=== PATIENT | female | born 1975 | race Native Hawaiian/Other Pacific Islander ===

== ENCOUNTER 2016-09-26 11:20 | Inpatient (IN) | payer SELFPAY ==
[~2016-09-26 11:20] MED LIST: ceFAZolin SODIUM 1 GM VIAL IVPB ONE
[2016-09-26 11:26] VITALS: BMI 24.3
[2016-09-26] MEDS ORDERED: ONDANSETRON 4 MG/2 ML VIAL IVPUSH ONE (12:04)
[2016-09-26] MEDS ORDERED: HYDROmorphone HCL CARPU-JECT 1 MG/1 ML DISP.SYRIN IVPUSH ONE (12:04)
[2016-09-26] MEDS ORDERED: PANTOPRAZOLE SODIUM 40 MG in SODIUM CHLORIDE 100 ML IVPB ONE (12:04)
[2016-09-26] MEDS ORDERED: SODIUM CHLORIDE 1,000 ML IV STA ×3 (12:05→13:26)
[2016-09-26] MEDS ORDERED: HYDROmorphone HCL CARPU-JECT 1 MG/1 ML DISP.SYRIN ONE ×2 (12:12→16:26)
[2016-09-26] MEDS ORDERED: PANTOPRAZOLE SODIUM 100 ML IVPB ONE (12:13)
[2016-09-26] MEDS ORDERED: ONDANSETRON 4 MG/2 ML VIAL ONE (12:13)
[2016-09-26 12:18] LABS: BASOPHIL 0.1 % (0-2.0); MEAN CELL VOLUME 74.2 fl (80-96); MEAN PLT VOLUME 8.1 fl (7.5-11.1); NEUTROPHILS 83.9 % (42.8-82.8); PLATELET COUNT 340 K/MM3 (134-434); WHITE BLOOD COUNT 8.7 K/mm3 (4.0-10.0)
--- NOTE | 2016-09-26 12:22 | PDOC ---
History of Present Illness - General Chief Complaint: Pain Stated Complaint: ABD PAIN Time Seen by Provider: 09/26/16 11:50 History Source: Patient Exam Limitations: No Limitations - History of Present Illness Travel History: No Initial Comments: 09/26/16 12:17 41-year-old female presents to the emergency room with complaints of right periumbilical pain that radiated to her right upper quadrant now to the right lower quadrant since yesterday after eating dinner. Patient states history of cholecystectomy, and mesenteric diverticulitis. Patient states long-standing history of diarrhea and intermittent abdominal pain which she is followed by a physician in [place]. Patient states has been visiting here for the past few days and denies fever, chills, chest pain or shortness of breath. Patient does also complain of diarrhea with vomiting since onset. Patient states menses is regular and has an IUD in place. Timing/Duration: reports: getting worse Quality: reports: moderate, cramping Abdominal Pain Onset Location: reports: RUQ, RLQ, periumbilical (rt) Pain Radiation: reports: no radiation Activities at Onset: reports: none Aggravating Factors: improves with: Eating (began after dinner) Alleviating Factors: improves with: None Past History - Past Medical History Allergies/Adverse Reactions: Allergies Allergy/AdvReac Type Severity Reaction Status Date / Time No Known Allergies Allergy Verified 09/26/16 11:26 Home Medications: Ambulatory Orders NK [No Known Home Medication] 09/26/16 GI Disorders: Yes (Mesenteric Diverticulitis) - Surgical History Abdominal Surgery: Yes Cholecystectomy: Yes - Reproductive History LMP Normal: Yes Is Patient Now?: No - Psycho/Social/Smoking Cessation Hx Suicidal Ideation: No Smoking History: Never smoked Information on smoking cessation initiated: No Hx Alcohol Use: No Drug/Substance Use Hx: No Substance Use Type: None Patient Lives Alone: No Abd/GI Specific PMHX - Complaint Specific PMHX Diverticulitis: Yes Review of Systems - Review of Systems Able to Perform ROS?: Yes Constitutional: No: Symptoms Reported HEENTM: No: Symptoms Reported Respiratory: No: Symptoms reported Cardiac (ROS): No: Symptoms Reported ABD/GI: Yes: Diarrhea, Nausea, Vomiting, Abdominal cramping : No: Symptoms Reported Musculoskeletal: No: Symptoms Reported Integumentary: No: Symptoms Reported Neurological: No: Symptoms reported *Physical Exam - Vital Signs Last Vital Signs Temp Pulse Resp BP Pulse Ox 97.7 F 80 18 113/76 97 09/26/16 11:24 09/26/16 11:24 09/26/16 11:24 09/26/16 11:24 09/26/16 11:24 - Physical Exam General Appearance: Yes: Nourished, Appropriately Dressed. No: Apparent Distress HEENT: positive: Pharynx Normal (dry) Neck: positive: Normal Thyroid, Supple Respiratory/Chest: positive: Lungs Clear, Normal Breath Sounds. negative: Respiratory Distress, Accessory Muscle Use Cardiovascular: positive: Regular Rhythm, Regular Rate. negative: Murmur Gastrointestinal/Abdominal: positive: Soft, Tenderness (right upper quadrant , right periumbilical right lower quadrant positive McBurney's negative Sánchez's. ) Musculoskeletal: negative: CVA Tenderness Extremity: positive: Normal Capillary Refill. negative: Pedal Edema Integumentary: positive: Normal Color, Warm, Moist Neurologic: positive: Normal Mood/Affect, Motor Strength 5/5 (ambulatory) ED Treatment Course - LABORATORY CBC & Chemistry Diagram: 09/26/16 12:05 09/26/16 12:05 - RADIOLOGY Radiology Studies Ordered: Category Date Time Status ABDOMEN & PELVIS CT WITH CONTR [CT] Stat CT Scan 09/26/16 12:04 Ordered Medical Decision Making - Medical Decision Making 09/26/16 12:22 Patient with right abdominal pain concerning for appendicitis versus choledocholithiasis versus pancreatitis. Patient ordered for labs, antiemetics, analgesics, IV fluids, urinalysis urine and ordered for CT with contrast 09/26/16 13:29 Laboratory Tests 09/26/16 09/26/16 09/26/16 12:05 12:05 12:05 Sodium 139 Potassium 4.4 Chloride 105 Carbon Dioxide 28 Anion Gap 6 L BUN 15 Creatinine 0.7 Creat Clearance w eGFR > 60 Lactic Acid 2.3 H* Urine Protein 1+ H Urine Ketones 1+ H Urine Blood 1+ H Ur Leukocyte Esterase Trace H Urine RBC 12 Urine WBC 19 Patient ordered for 2 additional liters of IV fluid along with a second lactic acid and ceftriaxone for noted UTI. 09/26/16 16:24 Laboratory Tests 09/26/16 12:05 Ur Specific [place] >= 1.[address] shows acute appendicitis. Pt states pain was resolved with dilaudid but now is returning. Call placed to Dr. Serrano, surgeon. 09/26/16 16:[address] Serrano surgeon and states keep nothing by mouth give IV fluids and Flagyl. *DC/Admit/Observation/Transfer Diagnosis at time of Disposition: Appendicitis Qualifiers: Appendicitis type: acute appendicitis - Discharge Dispostion Admit: Yes
[2016-09-26 12:35] LABS: MAGNESIUM 2.1 mg/dL (1.8-2.4); URINE APPEARANCE CLEAR; URINE BILIRUBIN NEGATIVE (NEGATIVE); URINE COLOR YELLOW; URINE GLUCOSE (UA) NEGATIVE (NEGATIVE); URINE KETONE 1+ (NEGATIVE); URINE NITRITE NEGATIVE (NEGATIVE); URINE UROBILINOGEN NEGATIVE E.U./dl (0.2-1.0)
[2016-09-26 12:40] LABS: ALBUMIN 4.3 g/dl (3.4-5.0); ALK PHOS 104 U/L (45-117); ANION GAP 6 (8-16); BILIRUBIN,TOTAL 0.4 mg/dL (0.2-1.0); CALCIUM 8.8 mg/dL (8.5-10.1); CO2 28 mmol/L (21-32); CREATININE 0.7 mg/dL (0.55-1.02); GLUCOSE,RANDOM 176 mg/dL (74-106); SGOT/AST 26 U/L (15-37); SGPT/ALT 38 U/L (12-78); TOT PROT 8.2 g/dl (6.4-8.2)
[2016-09-26 12:56] LABS: URINE BLOOD 1+ (NEGATIVE); URINE LEUK ESTERASE TRACE (NEGATIVE); URINE PROTEIN 1+ (NEGATIVE)
[2016-09-26 13:01] LABS: URINE MUCUS MANY; URINE RBC 12 /hpf (0-3); URINE WBC 19 /hpf (3-5)
[2016-09-26] MEDS ORDERED: CEFTRIAXONE 1 GM in DEXTROSE 5%-WATER - 50 ML IVPB ONE (13:29)
[2016-09-26] MEDS ORDERED: CEFTRIAXONE 50 ML ONE (13:44)
[2016-09-26] MEDS ORDERED: HYDROmorphone HCL CARPU-JECT 2 MG/1 ML DISP.SYRIN IVPUSH ONE (16:23)
--- NOTE | 2016-09-26 16:24 | PDOC ---
*Physical Exam - Vital Signs Last Vital Signs Temp Pulse Resp BP Pulse Ox 97.7 F 80 18 113/76 97 09/26/16 11:24 09/26/16 11:24 09/26/16 11:24 09/26/16 11:24 09/26/16 11:24 ED Treatment Course - LABORATORY CBC & Chemistry Diagram: 09/27/16 07:30 09/26/16 12:05 - ADDITIONAL ORDERS Additional order review: Laboratory Results 09/26/16 09/26/16 09/26/16 12:05 12:05 12:05 Sodium Potassium Chloride Carbon Dioxide Anion Gap BUN Creatinine Creat Clearance w eGFR Random Glucose Lactic Acid 2.3 H* Calcium Magnesium 2.1 Total Bilirubin AST ALT Alkaline Phosphatase Total Protein Albumin Lipase 76 Urine Color Yellow Urine Appearance Clear Urine pH 5.0 Urine Protein 1+ H Urine Glucose (UA) Negative Urine Ketones 1+ H Urine Blood 1+ H Urine Nitrite Negative Urine Bilirubin Negative Urine Urobilinogen Negative Ur Leukocyte Esterase Trace H Urine RBC 12 Urine WBC 19 Ur Epithelial Cells Few Urine Mucus Many Urine HCG, Qual Negative 09/26/16 12:05 Sodium 139 Potassium 4.4 Chloride 105 Carbon Dioxide 28 Anion Gap 6 L BUN 15 Creatinine 0.7 Creat Clearance w eGFR > 60 Random Glucose 176 H Lactic Acid Calcium 8.8 Magnesium Total Bilirubin 0.4 AST 26 ALT 38 Alkaline Phosphatase 104 Total Protein 8.2 Albumin 4.3 Lipase Urine Color Urine Appearance Urine pH Urine Protein Urine Glucose (UA) Urine Ketones Urine Blood Urine Nitrite Urine Bilirubin Urine Urobilinogen Ur Leukocyte Esterase Urine RBC Urine WBC Ur Epithelial Cells Urine Mucus Urine HCG, Qual 09/26/16 12:05 RBC 4.27 MCV 74.2 L MCHC 31.0 L RDW 19.0 H MPV 8.1 Neutrophils % 83.9 H Lymphocytes % 9.2 Monocytes % 6.8 Eosinophils % 0.0 Basophils % 0.1 - Medications Given in the ED: ED Medications Discontinued Medications Generic Name Dose Route Start Last Admin Trade Name Freq PRN Reason Stop Dose Admin Hydromorphone HCl 0.5 mg 09/26/16 12:04 09/26/16 12:24 Dilaudid Injection - IVPUSH 09/26/16 12:05 0.5 mg ONCE ONE Administration Pantoprazole Sodium 40 mg/ 100 mls @ 200 mls/hr 09/26/16 12:04 09/26/16 12:23 Sodium Chloride IVPB 09/26/16 12:33 200 mls/hr ONCE ONE Administration Sodium Chloride 1,000 mls @ 1,000 mls/hr 09/26/16 12:05 09/26/16 12:23 Normal Saline - IV 09/26/16 13:04 1,000 mls/hr ASDIR STA Administration Sodium Chloride 1,000 mls @ 1,000 mls/hr 09/26/16 13:26 09/26/16 13:38 Normal Saline - IV 09/26/16 14:25 1,000 mls/hr ASDIR STA Administration Sodium Chloride 1,000 mls @ 1,000 mls/hr 09/26/16 13:26 09/26/16 14:53 Normal Saline - IV 09/26/16 14:25 1,000 mls/hr ASDIR STA Administration Ceftriaxone Sodium 1 gm/ 50 mls @ 100 mls/hr 09/26/16 13:29 09/26/16 13:47 Dextrose IVPB 09/26/16 13:58 100 mls/hr ONCE ONE Administration Ondansetron HCl 4 mg 09/26/16 12:04 09/26/16 12:23 Zofran Injection IVPUSH 09/26/16 12:05 4 mg ONCE ONE Administration Medical Decision Making - Medical Decision Making 09/26/16 16:20 Pt seen by Midlevel Provider under my direct supervision 41 yo F presenting to the ER with a complaint of right sided abdominal pain Ancillary studies reviewed Laboratory Tests 09/26/16 09/26/16 12:05 12:05 BUN 15 Creatinine 0.7 AST 26 ALT 38 Lipase 76 I agree with plan as outlined by Midlevel Provider Pt pending CT of the abdomen and pelvis *DC/Admit/Observation/Transfer Diagnosis at time of Disposition: Appendicitis
[2016-09-26] MEDS ORDERED: METRONIDAZOLE 500 MG PREMIXED 100 ML IVPB ONE ×2 (16:30→16:38)
[2016-09-26] MEDS ORDERED: SODIUM CHLORIDE 1,000 ML IV SCH (16:45)
[2016-09-26] MEDS ORDERED: LIDOCAINE HCL 1%, 10 MG/ML (20ML VIAL) ONE (17:13)
[2016-09-26] MEDS ORDERED: BUPIVACAINE HCL/PF 0.5% (5MG/ML) 10 ML VIAL ONE ×2 (17:13→18:03)
--- NOTE | 2016-09-26 17:41 | HP ---
Admitting History and Physical - Admission Chief Complaint: RLQ abdominal pain History of Present Illness: 41-year-old female presents to the emergency room with complaints of right periumbilical pain that radiated to her right upper quadrant now to the right lower quadrant since yesterday after eating dinner. Patient states history of cholecystectomy, and mesenteric diverticulitis. Patient states long-standing history of diarrhea and intermittent abdominal pain which she is followed by a physician in [place]. Patient states has been visiting here for the past few days and denies fever, chills, chest pain or shortness of breath. Patient does also complain of diarrhea with vomiting since onset. Patient states menses is regular and has an IUD in place. CT scan shows RLQ inflammatory process consistent with acute appendicitis. Limitations to Obtaining History: No Limitations - Past Medical History Gastrointestinal: Yes: Diverticulitis, Other (chronic diarrhea) ...: No - Past Surgical History Past Surgical History: Yes: Cholecystectomy (laparoscopic) - Smoking History Smoking history: Never smoked - Alcohol/Substance Use Hx Alcohol Use: No - Social History History of Recent Travel: Yes (on vacation form [facility]) Home Medications - Allergies Allergies/Adverse Reactions: Allergies Allergy/AdvReac Type Severity Reaction Status Date / Time No Known Allergies Allergy Verified 09/26/16 11:26 - Home Medications Home Medications: Ambulatory Orders NK [No Known Home Medication] 09/26/16 Physical Examination Vital Signs: Vital Signs Temperature 97.7 F 09/26/16 11:24 Pulse Rate 115 H 09/26/16 17:09 Respiratory Rate 18 09/26/16 11:24 Blood Pressure 122/65 09/26/16 17:09 O2 Sat by Pulse Oximetry (%) 97 09/26/16 11:24 Constitutional: Yes: Well Nourished, Anxious HENT: Yes: Normocephalic Neck: Yes: Supple Cardiovascular: Yes: Tachycardia Respiratory: Yes: CTA Bilaterally Gastrointestinal: Yes: Soft, Tenderness, Rebound (at right lower quadrant) ...Rectal Exam: Yes: Deferred Musculoskeletal: Yes: WNL Extremities: Yes: WNL Edema: No Neurological: Yes: Alert, Oriented Labs: Laboratory Last Values WBC 8.7 K/mm3 (4.0-10.0) 09/26/16 12:05 RBC 4.27 M/mm3 (3.60-5.2) 09/26/16 12:05 Hgb 9.8 GM/dL (10.7-15.3) L 09/26/16 12:05 Hct 31.7 % (32.4-45.2) L 09/26/16 12:05 MCV 74.2 fl (80-96) L 09/26/16 12:05 MCHC 31.0 g/dl (32.0-36.0) L 09/26/16 12:05 RDW 19.0 % (11.6-15.6) H 09/26/16 12:05 Plt Count 340 K/MM3 (134-434) 09/26/16 12:05 MPV 8.1 fl (7.5-11.1) 09/26/16 12:05 Neutrophils % 83.9 % (42.8-82.8) H 09/26/16 12:05 Lymphocytes % 9.2 % (8-40) 09/26/16 12:05 Monocytes % 6.8 % (3.8-10.2) 09/26/16 12:05 Eosinophils % 0.0 % (0-4.5) 09/26/16 12:05 Basophils % 0.1 % (0-2.0) 09/26/16 12:05 Sodium 139 mmol/L (136-145) 09/26/16 12:05 Potassium 4.4 mmol/L (3.5-5.1) 09/26/16 12:05 Chloride 105 mmol/L (98-107) 09/26/16 12:05 Carbon Dioxide 28 mmol/L (21-32) 09/26/16 12:05 Anion Gap 6 (8-16) L 09/26/16 12:05 BUN 15 mg/dL (7-18) 09/26/16 12:05 Creatinine 0.7 mg/dL (0.55-1.02) 09/26/16 12:05 Creat Clearance w eGFR > 60 (>60) 09/26/16 12:05 Random Glucose 176 mg/dL (74-106) H 09/26/16 12:05 Lactic Acid 3.7 mmol/L (0.4-2.0) H* 09/26/16 16:10 Calcium 8.8 mg/dL (8.5-10.1) 09/26/16 12:05 Magnesium 2.1 mg/dL (1.8-2.4) 09/26/16 12:05 Total Bilirubin 0.4 mg/dL (0.2-1.0) 09/26/16 12:05 AST 26 U/L (15-37) 09/26/16 12:05 ALT 38 U/L (12-78) 09/26/16 12:05 Alkaline Phosphatase 104 U/L (45-117) 09/26/16 12:05 Total Protein 8.2 g/dl (6.4-8.2) 09/26/16 12:05 Albumin 4.3 g/dl (3.4-5.0) 09/26/16 12:05 Lipase 76 U/L (73-393) 09/26/16 12:05 Urine Color Yellow 09/26/16 12:05 Urine Appearance Clear 09/26/16 12:05 Urine pH 5.0 (5.0-8.0) 09/26/16 12:05 Ur Specific [place] >= 1.030 (1.005-1.025) H 09/26/16 12:05 Urine Protein 1+ (NEGATIVE) H 09/26/16 12:05 Urine Glucose (UA) Negative (NEGATIVE) 09/26/16 12:05 Urine Ketones 1+ (NEGATIVE) H 09/26/16 12:05 Urine Blood 1+ (NEGATIVE) H 09/26/16 12:05 Urine Nitrite Negative (NEGATIVE) 09/26/16 12:05 Urine Bilirubin Negative (NEGATIVE) 09/26/16 12:05 Urine Urobilinogen Negative E.U./dl (0.2-1.0) 09/26/16 12:05 Ur Leukocyte Esterase Trace (NEGATIVE) H 09/26/16 12:05 Urine RBC 12 /hpf (0-3) 09/26/16 12:05 Urine WBC 19 /hpf (3-5) 09/26/16 12:05 Ur Epithelial Cells Few /hpf (FEW) 09/26/16 12:05 Urine Mucus Many 09/26/16 12:05 Urine HCG, Qual Negative 09/26/16 12:05 Imaging - Results Cat Scan: Report Reviewed, Image Reviewed Problem List - Problems (1) Appendicitis Assessment/Plan: NPO IVF IV ANTIBIOTICS LAPAROSCOPIC APPENDECTOMY - risks of bowel injury, abscess, hematoma, stump leak , general anesthesia as well as benefits of rupture prevention, sepsis, and alternative of non-surgical management with IV antibiotics discussed with patient. Consent for proposed procedure signed. Code(s): K37 - UNSPECIFIED APPENDICITIS Qualifiers: Appendicitis type: acute appendicitis
[2016-09-26] MEDS ORDERED: PROPOFOL 20 ML ONE (17:50)
[2016-09-26] MEDS ORDERED: ROCURONIUM BROMIDE 50 MG/5 ML VIAL ONE (17:51)
[2016-09-26] MEDS ORDERED: DEXAMETHASONE SOD PHOSPHATE 4 MG/1 ML VIAL ONE (17:54)
[2016-09-26] MEDS ORDERED: PHENYLEPHRINE HCL 10 MG/1 ML SINGLE DOSE VIAL ONE (18:02)
[2016-09-26] MEDS ORDERED: BUPIVACAINE HCL/PF (5 MG/ML) 30 ML VIAL IJ ONE ×2 (18:11)
[2016-09-26] MEDS ORDERED: HYDROmorphone HCL CARPU-JECT 1 MG/1 ML DISP.SYRIN IVPUSH PRN ×2 (19:36→20:16)
[2016-09-26] MEDS ORDERED: ACETAMINOPHEN INJECTION 100 ML IVPB ONE (20:00)
[2016-09-26] MEDS ORDERED: ACETAMINOPHEN 1000 MG/100 ML VIAL (NON FORMULARY) IVPB PRN (20:13)
[2016-09-26] MEDS ORDERED: CEFOXITIN SODIUM 2 GM in DEXTROSE 5%-WATER - 100 ML IVPB ONE (20:15)
--- NOTE | 2016-09-26 20:18 | OP ---
Operative Note - Note: Operative Date: 09/26/16 Pre-Operative Diagnosis: [place] appendicitis Operation: Laparoscopic appendectomy, abdominal washout Findings: Ruptured appendicitis with generalized peritonitis Post-Operative Diagnosis: Other (Ruptured appendicitis with generalized peritonitis) Surgeon: Eren Serrano Anesthesiologist/DOUBLE END TENON OPERATOR: Mauro Kraft Anesthesia: General Estimated Blood Loss (mls): 10 Operative Report Dictated: Yes
[2016-09-26] MEDS ORDERED: HYDROmorphone HCL CARPU-JECT 2 MG/1 ML DISP.SYRIN ONE (20:22)
[2016-09-26] MEDS: LACTATED RINGERS SOLUTION 1,000 ML IV SCH (20:30)
[2016-09-26] MEDS ORDERED: cefOXitin SODIUM 2 GM VIAL (RESTRICTED TO ID) IVPB ONE (20:30)
[2016-09-26] MEDS ORDERED: cefOXitin SODIUM 2 GM VIAL (RESTRICTED TO ID) IVPB SCH (21:00)
--- NOTE | 2016-09-26 21:14 | OP ---
DATE OF OPERATION: 09/26/2016 PROCEDURE: Laparoscopic appendectomy with abdominal washout. PREOPERATIVE DIAGNOSIS: Acute appendicitis. POSTOPERATIVE DIAGNOSIS: Ruptured appendicitis with generalized peritonitis. SURGEON: Eren Serrano MD ANESTHESIA: General endotracheal. FINDINGS AND PROCEDURE: This is a 41-year-old female who presents with 1-day history of periumbilical abdominal pain, later localized in the right lower quadrant, associated with multiple episodes of diarrhea and vomiting. On physical exam, the patient was complaining of right-sided right upper quadrant, right lower quadrant, and midabdominal pain and tenderness. Preoperative CT scan in the emergency department showed inflammatory process in the right lower quadrant, consistent with appendicitis with some surrounding periappendiceal fluid and perihepatic fluid. So patient was advised emergent appendectomy, and consent was obtained after discussing the risks, benefits, and alternatives to the procedure. Patient was brought to the operating room and placed in supine position. General endotracheal anesthesia was administered. The abdomen was prepped and draped in the usual sterile fashion. Using 0.5% Marcaine, local anesthesia was administered to the proposed incision sites. The peritoneal cavity was entered using the Optiview technique, with a 5-mm 0-degree scope inserted in a 5-mm optical port. Pneumoperitoneum was established. The peritoneal cavity was carefully inspected and was noted to be free of any inadvertent injury; however, purulent fluid was noted in the pelvis, the right paracolic gutter, and initially the right perihepatic or subphrenic space. A 12-mm port was inserted in the suprapubic region to the left of midline, and another 5-mm port was inserted at the left lower quadrant area. Initially the purulent fluid in the pelvis was suctioned as well as the fluid in the perihepatic gutter. The appendix was then addressed by grasping the tip and lifting the appendix anteriorly. Rupture was noted at the proximal appendix about 2 cm from the base. A window was made using the [place] dissector between the mesoappendix and the base, and the appendix was amputated by firing an Endo LANDRY 45/3.5-mm stapling device. The mesoappendix was likewise amputated by firing an Endo LANDRY 45/2.5-mm stapler. After this was done, the appendiceal stump as well as some of the mesoappendix were carefully inspected and were noted to be intact and free of active bleeding. The appendix was placed in an Endobag and extracted via the suprapubic port. The peritoneal cavity was washed out with about 4 L of sterile normal saline, starting at the pelvis, where the area was copiously irrigated until the return was clear. The right subphrenic and the perihepatic gutter as well as the Morison pouch were copiously irrigated with sterile normal saline until the return was clear. The right paracolic gutter and the left paracolic gutter were also likewise irrigated and suctioned. The left subphrenic space was noted to be also containing a small amount of purulent fluid, and this was also copiously irrigated with sterile normal saline until return was clear. After the washout was deemed satisfactory, the appendiceal stump was again inspected and was noted to be intact and without any active bleeding. The pneumoperitoneum was then evacuated, and the ports were removed. The wounds were closed with 1 [id number] Vicryl 0 suture for the fascia of the suprapubic incision, and subcuticular Biosyn 4-0 sutures for all the port sites. The wound closure was reinforced with Dermabond. The patient was successfully extubated and transferred to the post-anesthesia care unit in satisfactory condition. Estimated blood loss was about 10 mL. Wound class dirty. Also sample fluid was sent culture and sensitivity studies. The patient was already given ceftriaxone and Flagyl in the emergency department prior to the start of the procedure. Osiris [id number] MTDD
[2016-09-26] MEDS: HEPARIN NA (PORCINE) 5,000 UNITS/ML 1ML VIAL SQ SCH (22:45)
[2016-09-27] MEDS: HYDROmorphone HCL CARPU-JECT 2 MG/1 ML DISP.SYRIN IVPB PRN ×5 (00:45→21:40)
[2016-09-27] MEDS ORDERED: CEFOXITIN SODIUM 2 GM in DEXTROSE 5%-WATER - 100 ML IVPB SCH (03:00)
[2016-09-27] MEDS ORDERED: CEFOXITIN SODIUM 2 GM in DEXTROSE 5%-WATER - 100 ML IVPB ONE (03:00)
[2016-09-27] MEDS: LACTATED RINGERS SOLUTION 1,000 ML IV SCH (03:37)
--- NOTE | 2016-09-27 07:57 | CONSULT ---
Consultation: REQUESTING PROVIDER: CONSULT REQUEST: We have been asked to medically evaluate this patient for (ID). HISTORY OF PRESENT ILLNESS: 41 y/o female came to hospital with a complaint of pain abdomen, nuasea, vomiting and diarrhoea. Found to have acute appendicitis. Patient was operated on 09/06 Lap appendectomy was done by Dr BE, operative notes shows patient has ruptured appendix. Patient is on cefoxitin 2gm iv q6h. Patient states post op her pain has improved, nausea and vomiting has improved. Denies fever and chills. denies burning micturation, cough. pre op patient has recieved one dose of ceftriaxone and metronidazole. post op patient is on cefoxitin 2gm q6h pmh : chronic diarrhoea and diverticulitis psh : lap ohlli REVIEW OF SYSTEMS: CONSTITUTIONAL: Absent: fever, chills, diaphoresis, generalized weakness, malaise, HEENT: Absent: rhinorrhea, nasal congestion, throat pain, throat swelling, CARDIOVASCULAR: Absent: chest pain, syncope, palpitations, RESPIRATORY: Absent: cough, shortness of breath, GASTROINTESTINAL: Absent: abdominal pain, abdominal distension, nausea, vomiting, diarrhea GENITOURINARY: Absent: dysuria, frequency, urgency PHYSICAL EXAMINATION Vital Signs - 24 hr 09/26/16 09/26/16 09/26/16 17:09 19:51 20:00 Temperature 100.7 F H Pulse Rate 114 H 110 H Pulse Rate [ 115 H Apical] Respiratory 23 22 Rate Blood Pressure 95/58 101/57 Blood Pressure 122/65 [Left Arm] O2 Sat by Pulse 93 L 94 L Oximetry (%) 09/26/16 09/26/16 09/26/16 20:15 20:30 20:45 Temperature Pulse Rate 101 H 100 H 100 H Pulse Rate [ Apical] Respiratory 20 16 16 Rate Blood Pressure 115/65 102/59 100/54 Blood Pressure [Left Arm] O2 Sat by Pulse 97 96 96 Oximetry (%) 09/26/16 09/26/16 21:00 22:00 Temperature 99.6 F 98.1 F Pulse Rate 99 H 90 Pulse Rate [ Apical] Respiratory 17 14 Rate Blood Pressure 101/58 94/65 Blood Pressure [Left Arm] O2 Sat by Pulse 99 98 Oximetry (%) GENERAL: Awake, alert, and fully oriented, in no acute distress. HEAD: Normal with no signs of trauma. LUNGS: Breath sounds equal, clear to auscultation bilaterally. No wheezes, and crackles present in b/l bases . No accessory muscle use. HEART: s1s2 normal ABDOMEN: Soft, mild tender in right paraumblical area, port sides healthy , not distended, no bowel sounds, no guarding, no rebound, UPPER EXTREMITIES: 2+ pulses, warm, LOWER EXTREMITIES warm,. No calf tenderness. No peripheral edema. SKIN: Warm, Active Medications Generic Name Dose Route Start Last Admin Trade Name Freq PRN Reason Stop Dose Admin Acetaminophen 1,000 mg 09/26/16 20:13 09/26/16 20:02 Ofirmev Injection - IVPB 09/27/16 14:14 1,000 mg Q6H PRN Administration FEVER OR PAIN Heparin Sodium (Porcine) 5,000 unit 09/26/16 22:00 09/26/16 22:45 Heparin - SQ 5,000 unit BID SIMON Administration Hydromorphone HCl 2 mg 09/26/16 20:09 09/27/16 04:44 Dilaudid Injection - IVPB 2 mg Q4H PRN Administration PAIN Lactated Ringer's 1,000 mls @ 125 mls/hr 09/26/16 20:15 09/27/16 03:37 Lactated Ringers Solution IV 125 mls/hr ASDIR SIMON Administration Cefoxitin Sodium 2 gm/ 100 mls @ 200 mls/hr 09/27/16 03:00 Dextrose IVPB Q6H-IV SIMON Pantoprazole Sodium 100 mls @ 200 mls/hr 09/27/16 10:00 Protonix 40mg Ivpb (Pre-Docked) IVPB DAILY SIMON CBCD WBC 8.7 K/mm3 (4.0-10.0) 09/26/16 12:05 RBC 4.27 M/mm3 (3.60-5.2) 09/26/16 12:05 Hgb 9.8 GM/dL (10.7-15.3) L 09/26/16 12:05 Hct 31.7 % (32.4-45.2) L 09/26/16 12:05 MCV 74.2 fl (80-96) L 09/26/16 12:05 MCHC 31.0 g/dl (32.0-36.0) L 09/26/16 12:05 RDW 19.0 % (11.6-15.6) H 09/26/16 12:05 Plt Count 340 K/MM3 (134-434) 09/26/16 12:05 MPV 8.1 fl (7.5-11.1) 09/26/16 12:05 CMP Sodium 139 mmol/L (136-145) 09/26/16 12:05 Potassium 4.4 mmol/L (3.5-5.1) 09/26/16 12:05 Chloride 105 mmol/L (98-107) 09/26/16 12:05 Carbon Dioxide 28 mmol/L (21-32) 09/26/16 12:05 Anion Gap 6 (8-16) L 09/26/16 12:05 BUN 15 mg/dL (7-18) 09/26/16 12:05 Creatinine 0.7 mg/dL (0.55-1.02) 09/26/16 12:05 Creat Clearance w eGFR > 60 (>60) 09/26/16 12:05 Random Glucose 176 mg/dL (74-106) H 09/26/16 12:05 Calcium 8.8 mg/dL (8.5-10.1) 09/26/16 12:05 Total Bilirubin 0.4 mg/dL (0.2-1.0) 09/26/16 12:05 AST 26 U/L (15-37) 09/26/16 12:05 ALT 38 U/L (12-78) 09/26/16 12:05 Alkaline Phosphatase 104 U/L (45-117) 09/26/16 12:05 Total Protein 8.2 g/dl (6.4-8.2) 09/26/16 12:05 Albumin 4.3 g/dl (3.4-5.0) 09/26/16 12:05 ASSESSMENT/PLAN: 41 y/o female [facility] with complain of pain abdomen, nausea, vomiting, diarrhoea. Found to have acute appendicitis on CT. Intra op patient has ruptured appendix. Tmax 100.7, wbc 8.7, Neutrophil 83.9 peritoneal fluid: culture and gram stain pending. continue with Dispo: We will continue to follow the patient. Thank you for this consultative opportunity. Visit type - Emergency Visit Emergency Visit: Yes ED Registration Date: 09/26/16 Care time: The patient presented to the Emergency Department on the above date and was hospitalized for further evaluation of their emergent condition. - New Patient This patient is new to me today: Yes Date on this admission: 09/27/16 - Critical Care Critical Care patient: No
[2016-09-27 08:24] LABS: BASOPHIL 0.2 % (0-2.0); MCH 22.8 pg (25.7-33.7); MCHC 30.7 g/dl (32.0-36.0); MEAN CELL VOLUME 74.4 fl (80-96); MEAN PLT VOLUME 8.6 fl (7.5-11.1); NEUTROPHILS 83.9 % (42.8-82.8); PLATELET COUNT 248 K/MM3 (134-434); RDW 19.4 % (11.6-15.6); WHITE BLOOD COUNT 8.3 K/mm3 (4.0-10.0)
[2016-09-27 08:48] LABS: GLUCOSE,RANDOM 109 mg/dL (74-106)
--- NOTE | 2016-09-27 09:03 | PN ---
Progress Note, Physician Chief Complaint: ID Day 1 Lap appendectomy Felling better No fever - Current Medication List Current Medications: Active Medications Acetaminophen (Ofirmev Injection -) 1,000 mg IVPB Q6H PRN PRN Reason: FEVER OR PAIN Stop: 09/27/16 14:14 Last Admin: 09/26/16 20:02 Dose: 1,000 mg Heparin Sodium (Porcine) (Heparin -) 5,000 unit SQ BID SIMON Last Admin: 09/26/16 22:45 Dose: 5,000 unit Hydromorphone HCl (Dilaudid Injection -) 2 mg IVPB Q4H PRN PRN Reason: PAIN Last Admin: 09/27/16 04:44 Dose: 2 mg Lactated Ringer's (Lactated Ringers Solution) 1,000 mls @ 125 mls/hr IV ASDIR SIMON Last Admin: 09/27/16 03:37 Dose: 125 mls/hr Cefoxitin Sodium 2 gm/ (Dextrose) 100 mls @ 200 mls/hr IVPB Q6H-IV SIMON Pantoprazole Sodium (Protonix 40mg Ivpb (Pre-Docked)) 100 mls @ 200 mls/hr IVPB DAILY SIMON - Objective Vital Signs: Vital Signs Temperature 98.1 F 09/26/16 22:00 Pulse Rate 90 09/26/16 22:00 Respiratory Rate 14 09/26/16 22:00 Blood Pressure 94/65 09/26/16 22:00 O2 Sat by Pulse Oximetry (%) 98 09/26/16 22:00 Constitutional: Yes: Well Nourished, No Distress Cardiovascular: Yes: S1, S2 Respiratory: Yes: Rales Gastrointestinal: Yes: Soft, Tenderness Edema: No Labs: CBC, BMP 09/27/16 07:30 Problem List - Problems (1) Appendicitis Code(s): K37 - UNSPECIFIED APPENDICITIS Qualifiers: Appendicitis type: acute appendicitis (2) Peritonitis Code(s): K65.9 - PERITONITIS, UNSPECIFIED Assessment/Plan Microbiology Laboratory Tests 09/26/16 09/26/16 09/26/16 12:05 12:05 16:10 WBC Hgb Hct Plt Count BUN 15 Lactic Acid 3.7 H* Total Protein 8.2 Albumin 4.3 Ur Leukocyte Esterase Trace H Urine RBC 12 Urine HCG, Qual Negative 09/27/16 07:30 WBC 8.3 Hgb 7.5 L D Hct 24.3 L D Plt Count 248 D BUN Lactic Acid Total Protein Albumin Ur Leukocyte Esterase Urine RBC Urine HCG, Qual Assessment Acute peritonitis Perforated appendix in this 41 year old traveler from [place] Plan CRP Await op cultures/pathology Continue Cefoxitin Reviewed and discussed with housestaff Note seen and agree Candida GIL
[2016-09-27 09:16] LABS: ALK PHOS 67 U/L (45-117); BILIRUBIN,TOTAL 0.4 mg/dL (0.2-1.0); CREATININE 0.6 mg/dL (0.55-1.02); SGOT/AST 25 U/L (15-37); SGPT/ALT 31 U/L (12-78)
[2016-09-27] MEDS: HEPARIN NA (PORCINE) 5,000 UNITS/ML 1ML VIAL SQ SCH ×2 (09:35→22:02)
[2016-09-27 09:55] LABS: ALBUMIN 2.9 g/dl (3.4-5.0); ANION GAP 7 (8-16); CALCIUM 7.5 mg/dL (8.5-10.1); CO2 26 mmol/L (21-32); TOT PROT 5.9 g/dl (6.4-8.2)
[2016-09-27] MEDS: PANTOPRAZOLE SODIUM 100 ML IVPB SCH (10:11)
[2016-09-27] MEDS: CEFOXITIN SODIUM 2 GM in DEXTROSE 5%-WATER - 100 ML IVPB SCH ×3 (10:58→22:07)
[2016-09-27 12:19] LABS: C-REACTIVE PROTEIN 18.7 MG/DL (0.00-0.3)
[2016-09-27] MEDS ORDERED: LACTATED RINGERS SOLUTION 1,000 ML IV SCH (13:30)
--- NOTE | 2016-09-27 13:51 | PN ---
Progress Note (short form) - Note Progress Note: Anesthesia postop note 41 y/o F s/p GA for Laparoscopic appendectomy POD#1, vss, aaox3, pain well controlled No anesthesia complications.
--- NOTE | 2016-09-27 14:18 | PN ---
Progress Note (short form) - Note Progress Note: Surgery Post-op pain tolerable On ice chips, no nausea or vomiting Afebrile, HR = 94 Abd: minimally distended WBC = 8.3K, N = 83% Hgb = 7.4 Lactate = 1.3 A: clinically better, ruptured appendicitis with generalized peritonitis P: may start clear liquids continue antibiotics, ID note appreciated OOB, IS, GI, & DVT prophylaxis f/u fluid C/S Problem List - Problems (1) Appendicitis Code(s): K37 - UNSPECIFIED APPENDICITIS Qualifiers: Appendicitis type: acute appendicitis
[2016-09-27] MEDS ORDERED: cefOXitin SODIUM 2 GM VIAL (RESTRICTED TO ID) IVPB SCH (15:00)
[2016-09-27] MEDS ORDERED: AZITHROMYCIN IVPB 250 ML IVPB ONE (21:19)
[2016-09-27 21:25] LABS: ARTERIAL BLOOD GAS BASE EXCESS 1.5 meq/l (-2-2); ARTERIAL BLOOD GAS HCO3 25.2 meq/L (22-26); ARTERIAL BLOOD GAS pH 7.41 (7.35-7.45)
[2016-09-27 21:26] LABS: ALLENS TEST POSITIVE; ART PUNCT SITE RIGHT RADIAL; LPM/O2% 3L; PT. ON O2? YES; TYPE OF O2 NASAL
[2016-09-27 21:28] LABS: ARTERIAL BLOOD GAS PO2 76.6 mmHg (80-100)
[2016-09-27] MEDS ORDERED: SODIUM CHLORIDE 1,000 ML IV SCH (21:30)
--- NOTE | 2016-09-27 21:30 | HOSP ---
Subjective - Review of Symptoms Events since last encounter: fever 102.7. sob, O2 sat mid 80's on 2 L NC Subjective: Patient denies sob but feels febrile. denies pain. POD 1 lap appe, had ruptured appendix. On Cefoxitin ppx. Reports decreased abd pain, denies flatus of BM. denies N/v. Tolerates full liquid diet. Denies chest pain or palpitations General: No: Chills, Night Sweats, Malaise HEENT: No: Head Aches Pulmonary: No: Dyspnea, Cough, Pleuritic Chest Pain Cardiovascular: No: Chest Pain, Palpitations, Orthopnea, Paroxysmal Noc. Dyspnea , Edema, Light Headedness Gastrointestinal: No: Nausea, Vomiting, Diarrhea, Constipation, Melena, Hematochezia Genitourinary: No: Dysuria Musculoskeletal: Yes: No Symptoms Neurological: No: Weakness, Numbness Physical Examination Vital Signs: Vital Signs Selected Entries 09/27/16 22:00 Temperature 102.7 F H Pulse Rate 132 H Respiratory 18 Rate Blood Pressure 128/67 O2 sat 86% on 2L NC Findings/Remarks: Abdomen is soft, mildly tender, no mass, no erythema or drainage from incision, present bowel sounds. Lungs: reduced breath sounds at bases and crackles at bases R>L. Heart RRR S1 S2. Appears comfortable. Able to bring incentive spirometer to 400. was able to bring to to 1000 earlier today Constitutional: Yes: Well Nourished, No Distress Eyes: Yes: Conjunctiva Clear HENT: Yes: Atraumatic, Normocephalic Neck: Yes: Supple, Trachea Midline Cardiovascular: Yes: Regular Rate and Rhythm, S1, S2. No: JVD Respiratory: Yes: Other (reduced breath sounds at bases and crackles at bases R> L) Gastrointestinal: Yes: Soft, Distention (mild), Hypoactive Bowel Sounds ( sligltly reduced), Tenderness (mild) Edema: No Labs: CBC, BMP 09/27/16 07:30 09/27/16 07:30 Hospitalist Encounter Assessment: 41 yo F with no pmh of cardiac or pulm disease, noncmoker, POD 1 s/p lap appe, had ruptured appendix, On Cefoxitin ppx. SOB and fever -abdomen benign, normal post op; source likely pulmonary -decreased bibasilar breath sounds R>L and crackles post op day 1 most consistent with atelectasis; cant r/o infectious infiltrate -CXR, blood and urine culture, CBC -incentive spirometry -rocephin and azithromcycin to cover for possible PNA -tylenol for fever -NS @ 125 -albuterol neb prn -NC 3 L Outcome: fever resolved and O2 sat improved CXR shows poor inspiratory effort and atelectasis R>L, no infiltrate -do not recommend further abx coverage for PNA Visit type - Emergency Visit Emergency Visit: Yes ED Registration Date: 09/26/16 Care time: The patient presented to the Emergency Department on the above date and was hospitalized for further evaluation of their emergent condition. - New Patient This patient is new to me today: Yes Date on this admission: 09/28/16 - Critical Care Critical Care patient: No
[2016-09-27] MEDS ORDERED: CEFTRIAXONE 50 ML IVPB ONE (22:00)
[2016-09-27] MEDS: ACETAMINOPHEN 1000 MG/100 ML VIAL (NON FORMULARY) IVPB PRN (22:00)
[2016-09-27 22:08] LABS: BASOPHIL 0.1 % (0-2.0); EOSINOPHIL 0.1 % (0-4.5); MCH 22.6 pg (25.7-33.7); MCHC 30.8 g/dl (32.0-36.0); MEAN CELL VOLUME 73.2 fl (80-96); MEAN PLT VOLUME 8.1 fl (7.5-11.1); NEUTROPHILS 89.3 % (42.8-82.8); PLATELET COUNT 260 K/MM3 (134-434); RDW 19.5 % (11.6-15.6); WHITE BLOOD COUNT 9.5 K/mm3 (4.0-10.0)
[2016-09-28] MEDS: HYDROmorphone HCL CARPU-JECT 2 MG/1 ML DISP.SYRIN IVPB PRN ×3 (01:17→14:47)
[2016-09-28] MEDS: ALBUTEROL SO4 0.083% IH SOL 2.5 MG/3 ML VIAL.NEB. NEB PRN ×5 (01:19→20:43)
[2016-09-28] MEDS: CEFOXITIN SODIUM 2 GM in DEXTROSE 5%-WATER - 100 ML IVPB SCH ×5 (03:35→23:04)
[2016-09-28] MEDS: ACETAMINOPHEN 1000 MG/100 ML VIAL (NON FORMULARY) IVPB PRN ×3 (03:57→23:39)
--- NOTE | 2016-09-28 09:05 | PN ---
Physical Exam: SUBJECTIVE: Patient seen and examined p/o day 2 s/p lap appendectomy. Last night patient had difficulty in breathing and saturation decreased, patient was given nebulizer, ceftriaxone and axithro. Patient also had couple of spikes of fever Tmax 102.7. This morning patient states breathing is better and pain has decreased since yesterday. Patient also reports distension and pain and swelling around umbilical port site. States she is passing flatus and is accepting clear liquid. Denies burning micturation, productive cough. OBJECTIVE: Vital Signs Period Temp Pulse Resp BP Sys/Hi Pulse Ox Last 24 Hr 98.5 F-102.7 F 102-132 18-20 116-147/63-74 95 GENERAL: Awake, alert, and fully oriented, in no acute distress. HEAD: Normal with no signs of trauma. LUNGS: Breath sounds equal, clear to auscultation bilaterally. No wheezes, and crackles present in b/l bases . No accessory muscle use. HEART: s1s2 normal, Tachycardia ABDOMEN: Soft, mild tender in umbilical area, induration present in para umblical area, distended, no bowel sounds, no guarding, no rebound, UPPER EXTREMITIES: 2+ pulses, warm, LOWER EXTREMITIES warm,. No calf tenderness. No peripheral edema. SKIN: Warm, Laboratory Results - last 24 hr 09/27/16 09/27/16 09/27/16 07:30 07:30 07:30 WBC RBC Hgb Hct MCV MCHC RDW Plt Count MPV Neutrophils % Lymphocytes % Monocytes % Eosinophils % Basophils % Puncture Site ABG pH ABG pCO2 at Pt Temp ABG pO2 at Pt Temp ABG HCO3 ABG O2 Sat (Measured) ABG O2 Content ABG Base Excess Prashant Test O2 Delivery Device Oxygen Flow Rate PEEP Sodium 138 Potassium 3.8 Chloride 105 Carbon Dioxide 26 Anion Gap 7 L BUN 9 D Creatinine 0.6 Creat Clearance w eGFR > 60 Random Glucose 109 H D Lactic Acid 1.3 Calcium 7.5 L Total Bilirubin 0.4 AST 25 ALT 31 Alkaline Phosphatase 67 D C-Reactive Protein 18.7 H Cancelled Total Protein 5.9 L D Albumin 2.9 L D 09/27/16 09/27/16 09/27/16 21:12 21:45 21:45 WBC 9.5 RBC 3.42 L Hgb 7.7 L Hct 25.0 L MCV 73.2 L MCHC 30.8 L RDW 19.5 H Plt Count 260 MPV 8.1 Neutrophils % 89.3 H Lymphocytes % 8.3 D Monocytes % 2.2 L Eosinophils % 0.1 D Basophils % 0.1 Puncture Site Right radial ABG pH 7.41 ABG pCO2 at Pt Temp 41.5 ABG pO2 at Pt Temp 76.6 L ABG HCO3 25.2 ABG O2 Sat (Measured) 93.0 ABG O2 Content 9.6 L* ABG Base Excess 1.5 Prashant Test Positive O2 Delivery Device Nasal Oxygen Flow Rate 3l PEEP 0.0 Sodium Potassium Chloride Carbon Dioxide Anion Gap BUN Creatinine Creat Clearance w eGFR Random Glucose Lactic Acid 1.4 Calcium Total Bilirubin AST ALT Alkaline Phosphatase C-Reactive Protein Total Protein Albumin Active Medications Generic Name Dose Route Start Last Admin Trade Name Freq PRN Reason Stop Dose Admin Acetaminophen 1,000 mg 09/27/16 20:55 09/28/16 03:57 Ofirmev Injection - IVPB 1,000 mg Q6H PRN Administration PAIN OR FEVER Albuterol Sulfate 1 amp 09/27/16 21:19 09/28/16 05:12 Ventolin 0.083% Nebulizer Soln - NEB 1 amp Q4H PRN Administration SHORT OF BREATH/WHEEZING Heparin Sodium (Porcine) 5,000 unit 09/26/16 22:00 09/27/16 22:02 Heparin - SQ 5,000 unit BID SIMON Administration Hydromorphone HCl 2 mg 09/26/16 20:09 09/28/16 05:11 Dilaudid Injection - IVPB 2 mg Q4H PRN Administration PAIN Pantoprazole Sodium 100 mls @ 200 mls/hr 09/27/16 10:00 09/27/16 10:11 Protonix 40mg Ivpb (Pre-Docked) IVPB 200 mls/hr DAILY SIMON Administration Cefoxitin Sodium 2 gm/ 100 mls @ 200 mls/hr 09/27/16 10:00 09/28/16 03:35 Dextrose IVPB 200 mls/hr Q6H-IV SIMON Administration Sodium Chloride 1,000 mls @ 125 mls/hr 09/27/16 21:30 09/27/16 22:01 Normal Saline - IV 125 mls/hr ASDIR SIMON Administration Microbiology 09/26/16 18:00 Peritoneal Fluid Gram Stain - Final ASSESSMENT/PLAN: Ruptured Appendix s/p lap appendectomy day 2 Peritonitis Fever could be from atelectasis vs wound infection. Plan: Continue with cefoxitin antibiotics. Culture report pending. Incentive spirometry. monitor intake/ output. OOB. Visit type - Emergency Visit Emergency Visit: Yes ED Registration Date: 09/26/16 Care time: The patient presented to the Emergency Department on the above date and was hospitalized for further evaluation of their emergent condition. - New Patient This patient is new to me today: No - Critical Care Critical Care patient: No
[2016-09-28] MEDS ORDERED: SODIUM CHLORIDE 1,000 ML IV SCH ×4 (09:10→17:00)
--- NOTE | 2016-09-28 10:17 | PN ---
Progress Note, Physician Chief Complaint: ID Cefoxitin Appears comfortable now Not SOB Fever over night not surprising given peritonitis - Current Medication List Current Medications: Active Medications Acetaminophen (Ofirmev Injection -) 1,000 mg IVPB Q6H PRN PRN Reason: PAIN OR FEVER Last Admin: 09/28/16 09:29 Dose: 1,000 mg Albuterol Sulfate (Ventolin 0.083% Nebulizer Soln -) 1 amp NEB Q4H PRN PRN Reason: SHORT OF BREATH/WHEEZING Last Admin: 09/28/16 05:12 Dose: 1 amp Heparin Sodium (Porcine) (Heparin -) 5,000 unit SQ BID SIMON Last Admin: 09/27/16 22:02 Dose: 5,000 unit Hydromorphone HCl (Dilaudid Injection -) 2 mg IVPB Q4H PRN PRN Reason: PAIN Last Admin: 09/28/16 05:11 Dose: 2 mg Pantoprazole Sodium (Protonix 40mg Ivpb (Pre-Docked)) 100 mls @ 200 mls/hr IVPB DAILY SIMON Last Admin: 09/27/16 10:11 Dose: 200 mls/hr Cefoxitin Sodium 2 gm/ (Dextrose) 100 mls @ 200 mls/hr IVPB Q6H-IV SIMON Last Admin: 09/28/16 03:35 Dose: 200 mls/hr Sodium Chloride (Normal Saline -) 1,000 mls @ 100 mls/hr IV ASDIR SIMON - Objective Vital Signs: Vital Signs Temperature 101 F H 09/28/16 09:34 Pulse Rate 112 H 09/28/16 09:34 Respiratory Rate 18 09/28/16 09:34 Blood Pressure 121/64 09/28/16 09:34 O2 Sat by Pulse Oximetry (%) 95 09/27/16 22:00 Constitutional: Yes: Well Nourished, No Distress HENT: Yes: WNL, Atraumatic Neck: Yes: WNL, Supple Respiratory: Yes: Diminished, Other (Diminished BS) Gastrointestinal: Yes: Soft, Tenderness. No: Tenderness, Rebound Extremities: No: Cold, Cool, Cyanosis Edema: No Labs: CBC, BMP 09/27/16 21:45 09/27/16 07:30 Problem List - Problems (1) Appendicitis Code(s): K37 - UNSPECIFIED APPENDICITIS Qualifiers: Appendicitis type: acute appendicitis (2) Peritonitis Code(s): K65.9 - PERITONITIS, UNSPECIFIED Assessment/Plan Microbiology 09/26/16 18:00 Peritoneal Fluid Gram Stain - Final Laboratory Tests 09/26/16 09/27/16 09/27/16 16:10 07:30 07:30 WBC RBC Hct Plt Count BUN 9 D Creatinine 0.6 Lactic Acid 3.7 H* 1.3 09/27/16 09/27/16 21:45 21:45 WBC 9.5 RBC 3.42 L Hct 25.0 L Plt Count 260 BUN Creatinine Lactic Acid 1.4 Assessment Perforated appendix with peritonitis Fever secondary to same Plan Continue Cefoxotin for now IF still febrile tomorrow consider evolution to abscess and will change antibiotics Cut back on vigorous IV fluids Encourage spirometer ambulation Candida GIL
[2016-09-28] MEDS: HEPARIN NA (PORCINE) 5,000 UNITS/ML 1ML VIAL SQ SCH ×2 (10:28→23:51)
[2016-09-28] MEDS: PANTOPRAZOLE SODIUM 100 ML IVPB SCH (12:31)
[2016-09-28 14:39] LABS: MCH 22.7 pg (25.7-33.7); MCHC 30.9 g/dl (32.0-36.0); MEAN CELL VOLUME 73.4 fl (80-96); MEAN PLT VOLUME 8.1 fl (7.5-11.1); PLATELET COUNT 201 K/MM3 (134-434); RDW 19.4 % (11.6-15.6); WHITE BLOOD COUNT 6.1 K/mm3 (4.0-10.0)
[2016-09-28 15:11] LABS: CALCIUM 7.4 mg/dL (8.5-10.1); CREATININE 0.5 mg/dL (0.55-1.02)
[2016-09-28] MEDS ORDERED: KCL 10 MEQ IVPB 100 ML IVPB SCH ×2 (16:45→18:00)
[2016-09-28] MEDS ORDERED: POTASSIUM CHLORIDE TABS 20 MEQ TABLET.ER (FP) PO SCH (16:45)
[2016-09-28] MEDS ORDERED: POTASSIUM CHLORIDE TABS 20 MEQ TABLET.ER (FP) PO ONE ×2 (17:00→22:38)
[2016-09-28] MEDS: KCL 10 MEQ IVPB 100 ML IVPB SCH ×2 (17:07→20:06)
--- NOTE | 2016-09-28 17:42 | CONSULT ---
Consultation: REQUESTING PROVIDER: CONSULT REQUEST: We have been asked to medically evaluate this patient for shortness of breath and anemia. HISTORY OF PRESENT ILLNESS: Patient is a 41 year old female with significant past medical history of anemia , mesenteric diverticulum (as per the patient) came in to the ED with the chief complaints of abdominal pain, nausea, vomiting and diarrhoea. Was admitted with the diagnosis of appendicitis and lap appendectomy with abdominal wash was done on 09/26/16. Since yesterday evening, patient has been having shortness of breath even at rest, aggravated on exertion. Denies chest pain, palpitation, cough, wheezing, fever, chills, rigors or sweating. Feels very weak and tired. Patient said she usually has shortness of breath when her hemoglobin level decreases. Patient mentioned her LMP was in 09/24/16, usually gets very heavy periods, lasting for 7-9 days, changes 6-7 pads/day. She is taking Ferrous sulfate at home. Patient also reports to have had nausea, vomiting, diarrhoea 1 and 1/2 yrs ago after which she had lap holli done. CT abdomen/Pelvis was done which showed mesenteric diverticulum , had a colonoscopy last year which was normal as per the patient. Denies blood in stool, hematuria, headache, dizziness, tingling or numbness. Today, had 4-5 episodes of diarrhoea, no blood. Complaints of abdominal pain, around the umbilical area, non radiating, 5/10 in intensity, not associated with nausea or vomiting today. Denies urinary symptoms. Allergies: none Surgical: Lap holli Social history: Denies smoking, alcohol or drugs Travel: Lives in [place], came here a week ago for a month. Family Hx: Unknown. REVIEW OF SYSTEMS: CONSTITUTIONAL: Absent: fever, chills, diaphoresis, generalized weakness, malaise, loss of appetite, weight change HEENT: Absent: rhinorrhea, nasal congestion, throat pain, throat swelling, difficulty swallowing, mouth swelling, ear pain, eye pain, visual changes CARDIOVASCULAR: Absent: chest pain, syncope, palpitations, irregular heart rate, lightheadedness , peripheral edema RESPIRATORY: Present: shortness of breath, dyspnea with exertion, Absent: cough, orthopnea, wheezing, stridor, hemoptysis GASTROINTESTINAL: Absent: abdominal pain, abdominal distension, nausea, vomiting, diarrhea, constipation, melena, hematochezia GENITOURINARY: Absent: dysuria, frequency, urgency, hesitancy, hematuria, flank pain, genital pain MUSCULOSKELETAL: Absent: myalgia, arthralgia, joint swelling, back pain, neck pain SKIN: Absent: rash, itching, pallor HEMATOLOGIC/IMMUNOLOGIC: Absent: easy bleeding, easy bruising, lymphadenopathy, frequent infections ENDOCRINE: Absent: unexplained weight gain, unexplained weight loss, heat intolerance, cold intolerance NEUROLOGIC: Absent: headache, focal weakness or paresthesias, dizziness, unsteady gait, seizure, mental status changes, bladder or bowel incontinence PSYCHIATRIC: Absent: anxiety, depression, suicidal or homicidal ideation, hallucinations. PHYSICAL EXAMINATION Vital Signs - 24 hr 09/27/16 09/27/16 09/28/16 18:42 22:00 00:00 Temperature 98.7 F 102.7 F H 98.5 F Pulse Rate 108 H 132 H Respiratory 20 18 Rate Blood Pressure 147/66 128/67 O2 Sat by Pulse 95 Oximetry (%) 09/28/16 09/28/16 09/28/16 03:41 05:53 09:00 Temperature 100.6 F H 99.0 F Pulse Rate 122 H 115 H Respiratory 18 18 Rate Blood Pressure 128/74 116/63 O2 Sat by Pulse 98 Oximetry (%) 09/28/16 09/28/16 09:34 15:58 Temperature 101 F H 99.8 F H Pulse Rate 112 H 112 H Respiratory 18 18 Rate Blood Pressure 121/64 126/70 O2 Sat by Pulse Oximetry (%) GENERAL: Patient is a young female, Awake, alert, and fully oriented, in mild respiratory distress. HEAD: Normal with no signs of trauma. EYES: EOM intact, mild pallor, no icterus. EARS, NOSE, THROAT: Ears normal. Moist mucous membranes. NECK: Supple. JVD + LUNGS: B/L decreased breath sounds L >R, clear to auscultation bilaterally. No wheezes, and no crackles. No accessory muscle use. HEART: Tachycardic, Regular rate and rhythm, normal S1 and S2 , rub or gallop. ABDOMEN: Soft, tenderness around the periumbilical area, not distended, decreased bowel sounds, no guarding, no rebound, no masses. No hepatomegaly or splenomegaly. [place] exam: Patient refused. MUSCULOSKELETAL: Normal range of motion at all joints. No bony deformities or tenderness. No CVA tenderness. UPPER EXTREMITIES: 2+ pulses, warm, well-perfused. No cyanosis. No clubbing. Cap refill <2 seconds. No peripheral edema. LOWER EXTREMITIES: 2+ pulses, warm, well-perfused. No calf tenderness. No peripheral edema. NEUROLOGICAL: Bulk/Tone normal, reflexes 1 + in biceps, knees not relaxed for knee jerk , no focal weakness, no facial droop, Cranial nerves II-XII intact. Normal speech. Normal gait. PSYCHIATRIC: Cooperative. Good eye contact. Appropriate mood and affect. SKIN: Warm, dry, normal turgor, no rashes or lesions noted. Laboratory Results - last 24 hr 09/27/16 09/27/16 09/27/16 21:12 21:45 21:45 WBC 9.5 RBC 3.42 L Hgb 7.7 L Hct 25.0 L MCV 73.2 L MCHC 30.8 L RDW 19.5 H Plt Count 260 MPV 8.1 Neutrophils % 89.3 H Lymphocytes % 8.3 D Monocytes % 2.2 L Eosinophils % 0.1 D Basophils % 0.1 Puncture Site Right radial ABG pH 7.41 ABG pCO2 at Pt Temp 41.5 ABG pO2 at Pt Temp 76.6 L ABG HCO3 25.2 ABG O2 Sat (Measured) 93.0 ABG O2 Content 9.6 L* ABG Base Excess 1.5 Prashant Test Positive O2 Delivery Device Nasal Oxygen Flow Rate 3l PEEP 0.0 Sodium Potassium Chloride Carbon Dioxide Anion Gap BUN Creatinine Random Glucose Lactic Acid 1.4 Calcium 09/28/16 09/28/16 14:28 14:28 WBC 6.1 D RBC 3.07 L Hgb 7.0 L Hct 22.5 L MCV 73.4 L MCHC 30.9 L RDW 19.4 H Plt Count 201 D MPV 8.1 Neutrophils % Lymphocytes % Monocytes % Eosinophils % Basophils % Puncture Site ABG pH ABG pCO2 at Pt Temp ABG pO2 at Pt Temp ABG HCO3 ABG O2 Sat (Measured) ABG O2 Content ABG Base Excess Prashant Test O2 Delivery Device Oxygen Flow Rate PEEP Sodium 141 Potassium 2.9 L* D Chloride 105 Carbon Dioxide 27 Anion Gap 9 BUN 5 L D Creatinine 0.5 L Random Glucose 115 H Lactic Acid Calcium 7.4 L Active Medications Generic Name Dose Route Start Last Admin Trade Name Freq PRN Reason Stop Dose Admin Acetaminophen 1,000 mg 09/27/16 20:55 09/28/16 09:29 Ofirmev Injection - IVPB 1,000 mg Q6H PRN Administration PAIN OR FEVER Albuterol Sulfate 1 amp 09/27/16 21:19 09/28/16 15:00 Ventolin 0.083% Nebulizer Soln - NEB 1 amp Q4H PRN Administration SHORT OF BREATH/WHEEZING Heparin Sodium (Porcine) 5,000 unit 09/26/16 22:00 09/28/16 10:28 Heparin - SQ 5,000 unit BID SIMON Administration Hydromorphone HCl 2 mg 09/26/16 20:09 09/28/16 14:47 Dilaudid Injection - IVPB 2 mg Q4H PRN Administration PAIN Pantoprazole Sodium 100 mls @ 200 mls/hr 09/27/16 10:00 09/28/16 12:31 Protonix 40mg Ivpb (Pre-Docked) IVPB 200 mls/hr DAILY SIMON Administration Cefoxitin Sodium 2 gm/ 100 mls @ 200 mls/hr 09/27/16 10:00 09/28/16 15:50 Dextrose IVPB 200 mls/hr Q6H-IV SIMON Administration Potassium Chloride 100 mls @ 100 mls/hr 09/28/16 17:00 09/28/16 17:07 Potassium Chloride 10 Meq Premix Ivpb - IVPB 09/28/16 18:59 100 mls/hr Q1H SIMON Administration Sodium Chloride 1,000 mls @ 20 mls/hr 09/28/16 17:00 09/28/16 17:10 Normal Saline - IV 20 mls/hr ASDIR SIMON Administration ASSESSMENT/PLAN: Patient is a 41 year old female with significant past medical history of anemia , mesenteric diverticulum (as per the patient) came in to the ED with the chief complaints of abdominal pain, nausea, vomiting and diarrhoea. Was admitted with the diagnosis of appendicitis and lap appendectomy with abdominal wash was done on 09/26/16. # Appendicitis s/p lap appendectomy "POD 2" Abdominal pain at surgical site, On Dilaudid 2mg Q4H On IV Cefoxitin 2gm Q6H as per ID Manage as per surgery # Symptomatic microcytic anemia H/H 7.11/21----> 7/22.5 ( Baseline Hb- 9-10) Never received blood transfusion in the past. Anemia could be due to menorrhagia ? Fibroids; LMP: 09/24/16 Patient takes ferrous sulfate at home. Will check Vitamin B12 level, Iron profile, folic acid. Discussed with the patient regarding blood transfusion, patient said she wants to discuss with her family before she agrees and she refused BT today. Patient refused [place] exam. TREASURY CONSULTANT consult as outpatient Colonoscopy was done in [place], no significant findings as per the patient. # Shortness of breath Likely due to anemia/Bibasilar atelectasis/fluid overload. Unlikely PE (Wells score 1.5 for tachycardia, Duplex negative for DVT of b/l lower extremities IV Lasix 20 mg stat IV fluids discontinued, patient tolerating orally. BNP EKG ordered stat CXR stat # Tachycardia Likely due to pain, anxiety; doesn't have fever now. # Hypokalemia K-2.9; received K-dur 40, to be repeated tomorrow # FEN IV fluids discontinued Electrolytes to be repeated in am Full liquid diet # Prophylaxis For DVT: On Heparin 5000 U BID For GI: Not indicated # Code status: Full Code # Dispo: Admitted in Med-Surg. Duration of stay unknown. Illness, Investigation and Plan of care explained to the patient. She verbalized understanding. Case seen and discussed with Dr. Davila. Dispo: We will continue to follow the patient. Thank you for this consultative opportunity. Problem List - Problems (1) Appendicitis Code(s): K37 - UNSPECIFIED APPENDICITIS Qualifiers: Appendicitis type: acute appendicitis (2) Anemia Code(s): D64.9 - ANEMIA, UNSPECIFIED Visit type - Emergency Visit Emergency Visit: Yes ED Registration Date: 09/26/16 Care time: The patient presented to the Emergency Department on the above date and was hospitalized for further evaluation of their emergent condition. - New Patient This patient is new to me today: Yes Date on this admission: 09/28/16 - Critical Care Critical Care patient: No
--- NOTE | 2016-09-28 18:58 | PN ---
Teaching Attending Note Name of Resident: Elizabeth Graves ATTENDING PHYSICIAN STATEMENT I saw and evaluated the patient. I reviewed the resident's note and discussed the case with the resident. I agree with the resident's findings and plan as documented. SUBJECTIVE: Reason for consult : SOB. HPI : 41 y/o pleasant lady with h/o CCY, anemia , h/o IBS and chronic diarrhea in past, acute diverticulitis , who presneted [facility] on 09/26 fro Abd pain , was found to have Acute appendicitis and underwent Appendectomy on 09/26. Medicine was consulted for SOB. After sx she did well, just complained of shireen-ambilical and supra-pubic pain. Also had d continued diarrhea (5 watery , non bloody BM today ) . SHe started feeling SOB last night , with no CP , or palpitations . she has occasional non productive cough . she has h/o chronic anemia , with Hb base line of 9-10 . she was never worked up for that. she has heavy menses ( 8-9 days /month , 5-6 pads a day ) .las period was 09/16-09/23. she never received a blood transfusion. She had colonoscopy in [place] which showed no etiology. she never had small bowel bx or diagnosed with mal-absorption disorders. she sometimes takes iron supp. OBJECTIVE: NAD , pleasant and cooperative. labored breathing HEENT: MMM. no LAP. pale conjunctivae , EOMI, round equal pupils . JVD CV: RRR, slightly tachy, JVD seen . Lungs : decreased breath sounds at bases . especially left base . fine crackles at L base Abd : soft, TTP in periambilical area and suprapubic area, no rebound tenderness or guarding. nl BS . 4 small surgical incisions . slight erythema and tenderness with no fluctuance around the periambilical incision . no drainage when squeezed. Ext : no edema , or erythema over LE or UE. Neuro : EOMI, round equal pupils , reactive to light , nl afacial sensation , strength 5/5 in upper and lower ext proximally and distally. sensation to light touch nL. reflexes 1+ biceps and BR b/l . not relaxed for Knee jerk Rectal exam: declined ASSESSMENT AND PLAN 41 y/o pleasant lady with h/o CCY, anemia , h/o IBS and chronic diarrhea in past , acute diverticulitis , who presneted [facility] on 09/26 fro Abd pain, was found to have Acute appendicitis and underwent Appendectomy on 09/26. Medicine was consulted for SOB. 1- SOB: it is multifactorial due to anemia , atlectasis , and volume overload ( pulm congestion on yesterday's Cxray, JVD , and decreased breath sounds at bases L > R) . no infiltrate on cxray to indicate PNA. PE is unlikely in her as her sat O2 is NL on RA, and has other etiologies to explain. WELLS score for PE is 1.5 ( tachycardia ). she is ambulatory after her sx - will repeat Cxray . - check EKG. - dc IVF. - check BNP. - offered patient RBC transfusion , she refused and wants to think about it - check echo - will administer 20 mg of IV lasix and monitor response - check US doppler of LE. 2- Worsening chronic microcytic anemia :likely due to her menorrhagia . and now with IVF dilution effect , and blood loss with sx - check iron studeis , B12 , folate - offered RBC. pt declined - declined rectal exam. but unlikely GI source - [employer] w/u as out patient , as might have fibroids 3-Severe sepsis 2/2 appendicities: lactic acid impoved. but pt still has fever . no evidence of PNA , no urinary sx x. and no evidence of skin infection . Abd wall with slightly erythematous area around ambilical incision. no fluctuance. - cont ABx per ID - might need broadening ABx and abd imaging to r/o abscess or leak. - blood cx and intra OP cx pending 4- Tachycardia likely response to fever , pain, anxiety and anemia. plan as above. 5- hypokalemia : received po supplements . repeat Thanks for this consult . will cont to follow
--- NOTE | 2016-09-28 19:12 | PN ---
Progress Note, Physician Chief Complaint: Shortness of breath, S/P laparocopic AP and washout for perforated appendicitis with peritonitis History of Present Illness: Patient c/o right sided and periumbilical pain and SOB Had diarrhea, tolerating full liquids - Current Medication List Current Medications: Active Medications Acetaminophen (Ofirmev Injection -) 1,000 mg IVPB Q6H PRN PRN Reason: PAIN OR FEVER Last Admin: 09/28/16 09:29 Dose: 1,000 mg Albuterol Sulfate (Ventolin 0.083% Nebulizer Soln -) 1 amp NEB Q4H PRN PRN Reason: SHORT OF BREATH/WHEEZING Last Admin: 09/28/16 15:00 Dose: 1 amp Heparin Sodium (Porcine) (Heparin -) 5,000 unit SQ BID SIMON Last Admin: 09/28/16 10:28 Dose: 5,000 unit Hydromorphone HCl (Dilaudid Injection -) 2 mg IVPB Q4H PRN PRN Reason: PAIN Last Admin: 09/28/16 14:47 Dose: 2 mg Pantoprazole Sodium (Protonix 40mg Ivpb (Pre-Docked)) 100 mls @ 200 mls/hr IVPB DAILY SIMON Last Admin: 09/28/16 12:31 Dose: 200 mls/hr Cefoxitin Sodium 2 gm/ (Dextrose) 100 mls @ 200 mls/hr IVPB Q6H-IV SIMON Last Admin: 09/28/16 15:50 Dose: 200 mls/hr - Objective Vital Signs: Vital Signs Temperature 98.9 F 09/28/16 17:43 Pulse Rate 108 H 09/28/16 17:43 Respiratory Rate 18 09/28/16 17:43 Blood Pressure 118/79 09/28/16 17:43 O2 Sat by Pulse Oximetry (%) 98 09/28/16 09:00 Constitutional: Yes: Anxious Eyes: Yes: Other (pale conjunctiva) Cardiovascular: Yes: Tachycardia Respiratory: Yes: SOB on Exertion Gastrointestinal: Yes: Soft, Distention (mild), Tenderness (RUQ and periumbilical) Extremities: Yes: Cool Wound/Incision: Yes: Reddened (suprumiblical wound with tenderness) Neurological: Yes: Alert, Oriented Labs: CBC, BMP 09/28/16 14:28 09/28/16 14:28 - ....Imaging Chest X-ray: Report Reviewed, Image Reviewed EKG: Pending Problem List - Problems (1) Appendicitis Assessment/Plan: No evidence of post-op obstruction R/O intraabdominal hemorrhage P: CTA abdomen and pelvis to r/o bleeding Monitor H/H continue IV CEFOXITIN, restrict fluid for possible pulmonary vascular congestion continue OB, IS, SCD'S, & SC HEPARIN possible blood transfusion for Hgb < 7 gm Code(s): K37 - UNSPECIFIED APPENDICITIS Assessment/Plan SOB, r/o PE CHEST CTA Hypokalemia - oral K-DUR 40 meq and IV K riders - 20 meq
[2016-09-28] MEDS ORDERED: FUROSEMIDE 40 MG/4 ML INJECTABLE VIAL IVPUSH ONE (19:23)
[2016-09-28 20:45] LABS: BASOPHIL 0.3 % (0-2.0); EOSINOPHIL 0.1 % (0-4.5); MCH 22.3 pg (25.7-33.7); MCHC 30.5 g/dl (32.0-36.0); MEAN CELL VOLUME 73.1 fl (80-96); MEAN PLT VOLUME 8.8 fl (7.5-11.1); NEUTROPHILS 88.1 % (42.8-82.8); PLATELET COUNT 238 K/MM3 (134-434); RDW 19.5 % (11.6-15.6); WHITE BLOOD COUNT 6.4 K/mm3 (4.0-10.0)
[2016-09-28 21:16] LABS: CALCIUM 8.2 mg/dL (8.5-10.1)
[2016-09-28 21:21] LABS: CREATININE 0.7 mg/dL (0.55-1.02); FERRITIN 44.144 ng/ml (6.9-282.5); TROPONIN I < 0.02 ng/ml (0.00-0.05)
[2016-09-29 01:29] LABS: TROPONIN I < 0.02 ng/ml (0.00-0.05)
[2016-09-29] MEDS: CEFOXITIN SODIUM 2 GM in DEXTROSE 5%-WATER - 100 ML IVPB SCH ×4 (02:36→21:38)
[2016-09-29 03:34] LABS: HYPOCHROMIA 2+; PLATELET ESTIMATE ADEQUATE (NORMAL); POIKILOCYTOSIS 1+; POLYCHROMASIA FEW
[2016-09-29 03:35] LABS: ANISOCYTOSIS 1+; MICROCYTOSIS 1+
[2016-09-29] MEDS: ALBUTEROL SO4 0.083% IH SOL 2.5 MG/3 ML VIAL.NEB. NEB PRN ×2 (06:14→21:52)
[2016-09-29 07:22] LABS: BASOPHIL 0.2 % (0-2.0); EOSINOPHIL 0.8 % (0-4.5); MCH 22.9 pg (25.7-33.7); MCHC 31.2 g/dl (32.0-36.0); MEAN CELL VOLUME 73.5 fl (80-96); MEAN PLT VOLUME 8.6 fl (7.5-11.1); NEUTROPHILS 74.4 % (42.8-82.8); PLATELET COUNT 225 K/MM3 (134-434); RDW 19.1 % (11.6-15.6); WHITE BLOOD COUNT 5.7 K/mm3 (4.0-10.0)
[2016-09-29 07:41] LABS: CALCIUM 8.2 mg/dL (8.5-10.1); COCKROFT - GAULT 134.181; CREATININE 0.6 mg/dL (0.55-1.02)
[2016-09-29] MEDS ORDERED: PT OWN MED DRAWER 7, Y5N ONE (08:44)
[2016-09-29] MEDS ORDERED: POTASSIUM CHLORIDE TABS 20 MEQ TABLET.ER (FP) PO ONE (10:00)
[2016-09-29] MEDS ORDERED: FUROSEMIDE 40 MG/4 ML INJECTABLE VIAL IVPB ONE (10:00)
[2016-09-29] MEDS: HEPARIN NA (PORCINE) 5,000 UNITS/ML 1ML VIAL SQ SCH ×2 (10:06→21:39)
[2016-09-29] MEDS: PANTOPRAZOLE SODIUM 100 ML IVPB SCH (10:06)
[2016-09-29] MEDS: CYANOCOBALAMIN (VITAMIN B-12) 1000 MCG/1 ML VIAL IM SCH (10:26)
--- NOTE | 2016-09-29 12:29 | PN ---
Physical Exam: SUBJECTIVE: Patient seen and examined at bed side this morning. Complaints of shortness of breath at rest but aggravated on movement and even going to the bathroom. Denies palpitation, cough or chest pain. Also reports to have abdominal pain more on the right upper quadrant today, doesn't have periumbilical pain like yesterday. This morning she moved her bowels 4 times, watery with no blood. No nausea or vomiting. Bladder habit normal-no urinary complaints. Appetite decreased. Sleep-disturbed. No acute overnight events. OBJECTIVE: Vital Signs Period Temp Pulse Resp BP Sys/Hi Pulse Ox Last 24 Hr 98 F-99.8 F 89-112 18-20 108-128/70-86 98-100 GENERAL: Patient is a young female, Awake, alert, and fully oriented, in mild respiratory distress. HEAD: Normal with no signs of trauma. EYES: EOM intact, mild pallor, no icterus. EARS, NOSE, THROAT: Ears normal. Dry mucous membranes. NECK: Supple. No JVD today. LUNGS: B/L decreased breath sounds L >R, clear to auscultation bilaterally. No wheezes, and no crackles. No accessory muscle use. HEART: Tachycardic, Regular rate and rhythm, normal S1 and S2 . ABDOMEN: Soft, tenderness around the periumbilical area, tenderness on the right upper quadrant, not distended, decreased bowel sounds, no guarding, no rebound, no masses. No hepatomegaly or splenomegaly. PA exam: Patient refused. MUSCULOSKELETAL: Normal range of motion at all joints. No bony deformities or tenderness. No CVA tenderness. UPPER EXTREMITIES: 2+ pulses, warm, well-perfused. No cyanosis. No clubbing. Cap refill <2 seconds. No peripheral edema. LOWER EXTREMITIES: 2+ pulses, warm, well-perfused. No calf tenderness. No peripheral edema. NEUROLOGICAL: Bulk/Tone normal, reflexes 1 + in biceps, knees not relaxed for knee jerk , no focal weakness, no facial droop, Cranial nerves II-XII intact. Normal speech. Normal gait. PSYCHIATRIC: Cooperative. Good eye contact. Appropriate mood and affect. SKIN: Warm, dry, normal turgor, no rashes or lesions noted. Laboratory Results - last 24 hr 09/28/16 09/28/16 09/28/16 14:28 14:28 20:00 WBC 6.1 D RBC 3.07 L Hgb 7.0 L Hct 22.5 L MCV 73.4 L MCHC 30.9 L RDW 19.4 H Plt Count 201 D MPV 8.1 Neutrophils % Lymphocytes % Monocytes % Eosinophils % Basophils % Platelet Estimate Polychromasia Hypochromic-Microcytic Poikilocytosis Anisocytosis Microcytosis Sodium 141 139 Potassium 2.9 L* D 3.5 D Chloride 105 103 Carbon Dioxide 27 26 Anion Gap 9 10 BUN 5 L D 3 L D Creatinine 0.5 L 0.7 D Random Glucose 115 H 160 H D Calcium 7.4 L 8.2 L Ferritin 44.144 Creatine Kinase Troponin I B-Natriuretic Peptide Vitamin B12 76 L Serum Folate 13 09/28/16 09/28/16 09/29/16 20:00 20:00 00:39 WBC 6.4 RBC 3.20 L Hgb 7.1 L Hct 23.4 L MCV 73.1 L MCHC 30.5 L RDW 19.5 H Plt Count 238 MPV 8.8 Neutrophils % 88.1 H Lymphocytes % 8.9 Monocytes % 2.6 L Eosinophils % 0.1 Basophils % 0.3 Platelet Estimate Adequate Polychromasia Few Hypochromic-Microcytic 2+ Poikilocytosis 1+ Anisocytosis 1+ Microcytosis 1+ Sodium Potassium Chloride Carbon Dioxide Anion Gap BUN Creatinine Random Glucose Calcium Ferritin Creatine Kinase 137 127 Troponin I < 0.02 < 0.02 B-Natriuretic Peptide Vitamin B12 Serum Folate 09/29/16 09/29/16 06:00 06:00 WBC 5.7 RBC 3.38 L Hgb 7.8 L Hct 24.9 L MCV 73.5 L MCHC 31.2 L RDW 19.1 H Plt Count 225 MPV 8.6 Neutrophils % 74.4 Lymphocytes % 20.0 D Monocytes % 4.6 Eosinophils % 0.8 D Basophils % 0.2 Platelet Estimate Polychromasia Hypochromic-Microcytic Poikilocytosis Anisocytosis Microcytosis Sodium 141 Potassium 3.4 L Chloride 104 Carbon Dioxide 26 Anion Gap 11 BUN 4 L D Creatinine 0.6 Random Glucose 118 H D Calcium 8.2 L Ferritin Creatine Kinase Troponin I B-Natriuretic Peptide 476.33 H Vitamin B12 Serum Folate Active Medications Generic Name Dose Route Start Last Admin Trade Name Freq PRN Reason Stop Dose Admin Acetaminophen 1,000 mg 09/27/16 20:55 09/28/16 23:39 Ofirmev Injection - IVPB 1,000 mg Q6H PRN Administration PAIN OR FEVER Albuterol Sulfate 1 amp 09/27/16 21:19 09/29/16 06:14 Ventolin 0.083% Nebulizer Soln - NEB 1 amp Q4H PRN Administration SHORT OF BREATH/WHEEZING Cyanocobalamin 1,000 mcg 09/29/16 10:00 09/29/16 10:26 Vitamin B12 Injection - IM 10/05/16 10:01 1,000 mcg DAILY SIMON Administration Heparin Sodium (Porcine) 5,000 unit 09/26/16 22:00 09/29/16 10:06 Heparin - SQ Not Given BID SIMON Hydromorphone HCl 2 mg 09/26/16 20:09 09/28/16 14:47 Dilaudid Injection - IVPB 2 mg Q4H PRN Administration PAIN Pantoprazole Sodium 100 mls @ 200 mls/hr 09/27/16 10:00 09/29/16 10:06 Protonix 40mg Ivpb (Pre-Docked) IVPB 200 mls/hr DAILY SIMON Administration Cefoxitin Sodium 2 gm/ 100 mls @ 200 mls/hr 09/27/16 10:00 09/29/16 08:50 Dextrose IVPB 200 mls/hr Q6H-IV SIMON Administration 09/28/2016 CT abdomen/Pelvis: IMPRESSION: In comparison to a prior CT study of the patient is status post interval appendectomy. No intra-abdominal/ pelvic hemorrhage is identified. There is no obvious gastrointestinal tract hemorrhage allowing for partially obscuring oral contrast. A 4 x 2.3 x 1.7 cm nonspecific fluid collection is seen within the pelvic cul-de-sac with a thin enhancing rim - ? abscess. CT-guided percutaneous catheter aspiration/drainage may be considered. Alternatively correlate with close follow-up CT. On the preoperative CT study free fluid was seen at that location. 09/28/2016 CT chest: IMPRESSION: There is no definite CT evidence of pulmonary embolism. Evaluation of the lower lobe subsegmental vessels is somewhat limited due to atelectasis with resultant vessel crowding. In comparison to an abdomen CT study of 09/26/2016 interval development of small right sided and trace left- sided pleural effusions is seen. There is increased bibasilar atelectasis. ASSESSMENT/PLAN: Patient is a 41 year old female with significant past medical history of anemia , mesenteric diverticulum (as per the patient) came in to the ED with the chief complaints of abdominal pain, nausea, vomiting and diarrhoea. Was admitted with the diagnosis of appendicitis and lap appendectomy with abdominal wash was done on 09/26/16. # Sepsis secondary to Appendicitis s/p lap appendectomy "POD 3" with an abscess formation in the cul-de-sac Abdominal pain at surgical site, febrile especially at night x 3 days Tmax 102F- likely due to abscess formation. As per IR, the abscess is too small to be drained. On IV Cefoxitin 2gm Q6H and there is no plan to change the antibiotics today , to be changed if fever persists as per ID Blood culture, urine culture negative Manage as per surgery # Symptomatic anemia likely due to Iron def anemia Today H/H improved to 7.8/24.9 without blood transfusion. ( Baseline Hb- 9-10 ), IV NS was stopped yesterday. Likely has Iron def anemia although Ferritin is normal-a acute phase reactant Low Vit B12 (76)- IM Vit B12 1000 mcg daily for a week then once a week x 1 wk followed by monthly. Anemia could be due to menorrhagia ? Fibroids; LMP: 09/24/16, [facility] as outpatient. Patient takes ferrous sulfate at home and to continue upon discharge. Iron profile pending, folic acid normal. Patient had refused blood transfusion yesterday, today she said if needed she will agree for BT. Patient refused PA exam, pending stool for occult blood. [employer] consult as outpatient Colonoscopy was done in [place], no significant findings as per the patient. # Shortness of breath due to Pleural effusion ad Fluid overload Also due to anemia/Bibasilar atelectasis. PE ruled out-negative CTA Duplex negative for DVT of b/l lower extremities ACS ruled out- Troponins x 2 negative, EKG: no acute significant changes Shortness of breath improved after stopped IV fluids and IV Lasix, IV Lasix 40 mg given stat. No IV fluids as patient was fluid overloaded post surgery due to aggressive hydration. BNP: 476.33 ECHO 09/29/2016: Mild MR and TR, no wall motion abnormalities with normal EF # Diarrhoea ? IBS C. diff negative # Abnormal EKG: T wave inversion in the Anteroseptal leads Do not have an EKG to compare. Repeat EKG stat: # Tachycardia Likely due to pain, anxiety; doesn't have fever now. # Hypokalemia-improving K-3.4; Stat K-dur 40 mEq, to be repeated tomorrow # FEN IV fluids discontinued Electrolytes to be repeated in am Full liquid diet # Prophylaxis For DVT: Heparin 5000 U BID-On Hold just incase patient is taken to the OR for abscess drain For GI: Not indicated # Code status: Full Code # Dispo: Admitted in Med-Surg. Duration of stay unknown. Illness, Investigation and Plan of care explained to the patient. She verbalized understanding. Case seen and discussed with Dr. Davila. Dispo: We will continue to follow the patient. Thank you for this consultative opportunity. Problem List - Problems (1) Appendicitis Code(s): K37 - UNSPECIFIED APPENDICITIS Qualifiers: Appendicitis type: acute appendicitis (2) Anemia Code(s): D64.9 - ANEMIA, UNSPECIFIED Visit type - Emergency Visit Emergency Visit: Yes ED Registration Date: 09/26/16 Care time: The patient presented to the Emergency Department on the above date and was hospitalized for further evaluation of their emergent condition. - New Patient This patient is new to me today: No - Critical Care Critical Care patient: No
--- NOTE | 2016-09-29 12:57 | PN ---
Teaching Attending Note Name of Resident: Elizabeth Graves ATTENDING PHYSICIAN STATEMENT I saw and evaluated the patient. I reviewed the resident's note and discussed the case with the resident. I agree with the resident's findings and plan as documented. SUBJECTIVE: no fever or chills, SOB feels better . cont with Abd pain and diarrhea OBJECTIVE: NAD , pleasant and cooperative. HEENT: MMM. no LAP. pale conjunctivae ,no JVD today CV: RRR, slightly tachy. Lungs : decreased breath sounds at bases . especially left base . fine crackles at L base Abd : soft, TTP in periambilical area and suprapubic area, no rebound tenderness or guarding. nl BS . 4 small surgical incisions . slight erythema ( improved ) and tenderness . Ext : no edema , or erythema over LE or UE. ASSESSMENT AND PLAN 41 y/o pleasant lady with h/o CCY, anemia , h/o IBS and chronic diarrhea in past , acute diverticulitis , who [facility] on 09/26 fro Abd pain, was found to have Acute appendicitis and underwent Appendectomy on 09/26. Medicine was consulted for SOB. 1- SOB: Due to pulm edema and pleural effusion from fluid overload. ( received 9 L of IVF over past 3 days ) . No evidence of PE, or infiltrate on CT. anemia is contributing to SOB - give 40 mg of IV lasix today . - monitor I&O ,strictly. - will evaluate need for diuretics on a daily basis - echo with nL EF and no Wall motion abnormalities. - EKG last night with inverted TW in anterioseptal leads. no previous to compare. Will rpeat EKG. trop NL x 2. no clinical evidence of ACS. will need out pt work up - repeat EKG 2- Worsening chronic microcytic anemia :likely due to her menorrhagia , dilution effect , and blood loss with sx - iron studies pending but ferritin in 44 ( also Acute phase reactant ) , which might indicate iron def. - start iron supp at dc - B12 is low which is contributing to anemia , will start IM B12 1000mcg daily x 1 week, then weekly x 4 weeks , then monthly after then - RN HEMATOLOGY f/u as out pt 3-Severe sepsis 2/2 appendicities: COnt to have fever 101 last night ( not documented) CT scan showed fluid collection in pelvis . ? abscess - will d/w ID broadening ABx - surgery team to determine need for aspiration vs medical mgt - OP cx pending . follow blood cx 4- hypokalemia : repeat today Will cont to follow
--- NOTE | 2016-09-29 13:54 | PN ---
Progress Note, Physician Chief Complaint: ID SOB better Fever on and off Cefoxitin day 3 post op - Current Medication List Current Medications: Active Medications Acetaminophen (Ofirmev Injection -) 1,000 mg IVPB Q6H PRN PRN Reason: PAIN OR FEVER Last Admin: 09/28/16 23:39 Dose: 1,000 mg Albuterol Sulfate (Ventolin 0.083% Nebulizer Soln -) 1 amp NEB Q4H PRN PRN Reason: SHORT OF BREATH/WHEEZING Last Admin: 09/29/16 06:14 Dose: 1 amp Cyanocobalamin (Vitamin B12 Injection -) 1,000 mcg IM DAILY SIMON Stop: 10/05/16 10:01 Last Admin: 09/29/16 10:26 Dose: 1,000 mcg Heparin Sodium (Porcine) (Heparin -) 5,000 unit SQ BID SIMON Last Admin: 09/29/16 10:06 Dose: Not Given Hydromorphone HCl (Dilaudid Injection -) 2 mg IVPB Q4H PRN PRN Reason: PAIN Last Admin: 09/28/16 14:47 Dose: 2 mg Pantoprazole Sodium (Protonix 40mg Ivpb (Pre-Docked)) 100 mls @ 200 mls/hr IVPB DAILY SIMON Last Admin: 09/29/16 10:06 Dose: 200 mls/hr Cefoxitin Sodium 2 gm/ (Dextrose) 100 mls @ 200 mls/hr IVPB Q6H-IV SIMON Last Admin: 09/29/16 08:50 Dose: 200 mls/hr - Objective Vital Signs: Vital Signs Temperature 98.9 F 09/29/16 08:00 Pulse Rate 100 H 09/29/16 08:00 Respiratory Rate 18 09/29/16 08:00 Blood Pressure 128/86 09/29/16 08:00 O2 Sat by Pulse Oximetry (%) 100 09/29/16 09:00 Constitutional: Yes: Well Nourished, No Distress HENT: Yes: WNL, Atraumatic Neck: Yes: WNL, Supple Cardiovascular: Yes: Regular Rate and Rhythm, S1, S2. No: Murmur Respiratory: Yes: WNL, Regular, CTA Bilaterally, Diminished Gastrointestinal: Yes: WNL, Normal Bowel Sounds, Soft, Tenderness, Other ( Erythema ant lower abd) Edema: No Labs: CBC, BMP 09/29/16 06:00 09/29/16 06:00 Problem List - Problems (1) Appendicitis Code(s): K37 - UNSPECIFIED APPENDICITIS Qualifiers: Appendicitis type: acute appendicitis (2) Peritonitis Code(s): K65.9 - PERITONITIS, UNSPECIFIED Assessment/Plan Microbiology 09/29/16 06:30 Stool Clostridium difficile Antigen (LIZBETH) - Final 09/29/16 06:30 Stool Clostridium difficile Toxin Assay - Final 09/27/16 21:45 Blood - Peripheral Venous Blood Culture - Preliminary NO GROWTH OBTAINED AFTER 24 HOURS, INCUBATION TO CONTINUE FOR 4 DAYS. 09/27/16 21:45 Blood - Peripheral Venous Blood Culture - Preliminary NO GROWTH OBTAINED AFTER 24 HOURS, INCUBATION TO CONTINUE FOR 4 DAYS. Laboratory Tests 09/29/16 09/29/16 06:00 06:00 WBC 5.7 Hgb 7.8 L Hct 24.9 L Plt Count 225 BUN 4 L D Assessment Day 3 surgery for perforated appendix Early abscess seen culdesac on CT with suggestion of drainage offered With regard to antibiotic not going to make a difference what antibiotic we give prescribe if she needs drainage of collection That said should fever persist would switch her to Zosyn 4.5 grs q H montherapy on place of Cefoxitin NOte her CRP 09/27 is high can be followed Candida GIL
--- NOTE | 2016-09-29 13:57 | PATH ---
Surgical Pathology Report Patient Name: AIDE ALFONSO [facility]. Rec. #: [id number] /Age/Gender: 1975 (Age: 41) / F Account: [id number] Location: [address] [place] [address] Taken: 09/26/2016 Received: 09/27/2016 Reported: 09/29/2016 Physicians: Eren Serrano M.D. Specimen(s) Received APPENDIX Clinical History Acute appendicitis Final Diagnosis APPENDIX, APPENDECTOMY: MARKED ACUTE APPENDICITIS AND PERIAPPENDICITIS. Electronically Signed Nnamdi Khan M.D. Gross Description Received in formalin, labeled "appendix" is a 5.5 cm. in length vermiform appendix with a stapled margin of resection and moderate attached fat. The serosa is terrell-bee with a focal possible defect and abundant attached exudate. Sectioning reveals pus within the lumen. The wall of the appendix averages 0.2 cm in thickness. The specimen is submitted in cassettes 1-6. /09/27/2016 [facility]09/27/2016
[2016-09-30] MEDS: CEFOXITIN SODIUM 2 GM in DEXTROSE 5%-WATER - 100 ML IVPB SCH ×2 (03:10→09:18)
[2016-09-30 06:09] LABS: SERUM IRON 8 ug/dL (27-159); TOTAL IRON BINDING CAPACITY 305 ug/dL (250-450); UIBC 297 ug/dL (131-425)
[2016-09-30 08:20] LABS: MCH 23.7 pg (25.7-33.7); MCHC 32.4 g/dl (32.0-36.0); MEAN CELL VOLUME 73.1 fl (80-96); MEAN PLT VOLUME 8.9 fl (7.5-11.1); PLATELET COUNT 274 K/MM3 (134-434); RDW 19.6 % (11.6-15.6)
[2016-09-30 08:53] LABS: ALBUMIN 3.4 g/dl (3.4-5.0); ALK PHOS 103 U/L (45-117); ANION GAP 13 (8-16); BILIRUBIN,TOTAL 0.4 mg/dL (0.2-1.0); CALCIUM 8.7 mg/dL (8.5-10.1); CO2 24 mmol/L (21-32); CREATININE 0.6 mg/dL (0.55-1.02); GLUCOSE,RANDOM 129 mg/dL (74-106); MAGNESIUM 2.1 mg/dL (1.8-2.4); SGOT/AST 12 U/L (15-37); SGPT/ALT 26 U/L (12-78); TOT PROT 7.7 g/dl (6.4-8.2)
[2016-09-30] MEDS ORDERED: PT OWN MED DRAWER 7, Y5N ONE (09:15)
[2016-09-30] MEDS: HEPARIN NA (PORCINE) 5,000 UNITS/ML 1ML VIAL SQ SCH (09:18)
[2016-09-30] MEDS: CYANOCOBALAMIN (VITAMIN B-12) 1000 MCG/1 ML VIAL IM SCH (09:18)
[2016-09-30] MEDS: PANTOPRAZOLE SODIUM 100 ML IVPB SCH (09:18)
--- NOTE | 2016-09-30 09:30 | PN ---
Progress Note (short form) - Note Progress Note: Subjective: no SOB today, no fever, abd pain in periambilical area is better . Objective: Vital Signs: Last Vital Signs Temp Pulse Resp BP Pulse Ox 98.6 F 84 20 109/64 100 09/30/16 06:00 09/30/16 06:00 09/30/16 06:00 09/30/16 06:00 09/29/16 21:00 Laboratory Results - last 24 hr 09/28/16 09/29/16 09/30/16 20:00 23:08 07:45 WBC 5.0 RBC 3.96 Hgb 9.4 L D Hct 28.9 L D MCV 73.1 L MCHC 32.4 RDW 19.6 H Plt Count 274 D MPV 8.9 Sodium Potassium Chloride Carbon Dioxide Anion Gap BUN Creatinine Creat Clearance w eGFR Random Glucose Calcium Magnesium Iron 8 L TIBC 305 Iron Saturation 3 L Total Bilirubin AST ALT Alkaline Phosphatase Total Protein Albumin Stool Occult Blood Negative 09/30/16 07:45 WBC RBC Hgb Hct MCV MCHC RDW Plt Count MPV Sodium 139 Potassium 3.8 Chloride 102 Carbon Dioxide 24 Anion Gap 13 BUN 8 D Creatinine 0.6 Creat Clearance w eGFR > 60 Random Glucose 129 H Calcium 8.7 Magnesium 2.1 Iron TIBC Iron Saturation Total Bilirubin 0.4 AST 12 L D ALT 26 Alkaline Phosphatase 103 D Total Protein 7.7 D Albumin 3.4 Stool Occult Blood Physical Exam: NAD , pleasant and cooperative. HEENT: MMM. no LAP. pale conjunctivae ,no JVD today CV: RRR. no tachycardia Lungs: decreased breath sounds at bases . especially left base . clear lungs today Abd : soft, minimal TTP in periambilical area , no rebound tenderness or guarding. nl BS . 4 small surgical incisions . Ext : no edema , or erythema over LE or UE. ASSESSMENT AND PLAN 41 y/o pleasant lady with h/o CCY, anemia , h/o IBS and chronic diarrhea in past , acute diverticulitis , [facility] Abd pain, was found to have Acute appendicitis and underwent Appendectomy on 09/26. Medicine was consulted for SOB. 1- SOB: Due to pulm edema and pleural effusion from fluid overload. No significantly improved after total of 60 mg of IV lasix. No evidence of PE, or infiltrate on CT. anemia is contributing to SOB - No need to diurese further , as sx improved. Will allow auto-diuresis - UOP is not being reported correctly - echo with nL EF and no Wall motion abnormalities. 2- Worsening chronic microcytic anemia :likely due to her menorrhagia , dilution effect , and blood loss with sx Hb improved with No transfusion - iron studies suggest iron def anemia - start iron supp - B12 is low which is contributing to anemia , cont IM B12 1000mcg daily x 1 week, then weekly x 4 weeks , then monthly after then - [employer] f/u as out pt 3-Severe sepsis 2/2 appendicities:s epsis has resolved and fever ahs resolved too CT scan showed fluid collection in pelvis . ? abscess - Abx per ID - case d/w Dr. Singleton yesterday, no indication for aspiration of fluid collection unless it increases on abx therapy - OP cx Neg Will cont to follow Visit type - Emergency Visit Emergency Visit: Yes ED Registration Date: 09/26/16 Care time: The patient presented to the Emergency Department on the above date and was hospitalized for further evaluation of their emergent condition. - New Patient This patient is new to me today: No - Critical Care Critical Care patient: No
--- NOTE | 2016-09-30 11:08 | PN ---
Progress Note (short form) - Note Progress Note: POD # 4 Afebrile for > 24 hours Tolerating regular diet Minimal lower abdominal pain Abd: no suprapubic or RLQ tenderness WBC = 5k, Hgb = 9.4 K+ = 3.8 A: clinically improved, pelvic fluid collection likely from irrigation fluid, no sign of evolving intra-abdominal abscess i.e., aabscence of persistent fever , abdominal pain, food intolerance, and leukocytosis P: D/C home on p.o. antibiotics pending ID recommendation f/u at the office in one week Problem List - Problems (1) Appendicitis Code(s): K37 - UNSPECIFIED APPENDICITIS Qualifiers: Appendicitis type: acute appendicitis
--- NOTE | 2016-09-30 11:40 | PN ---
Progress Note, Physician History of Present Illness: No c/o abdominal pain No fever/ chills Tolerating diet +BM - Current Medication List Current Medications: Active Medications Acetaminophen (Ofirmev Injection -) 1,000 mg IVPB Q6H PRN PRN Reason: PAIN OR FEVER Last Admin: 09/28/16 23:39 Dose: 1,000 mg Albuterol Sulfate (Ventolin 0.083% Nebulizer Soln -) 1 amp NEB Q4H PRN PRN Reason: SHORT OF BREATH/WHEEZING Last Admin: 09/29/16 21:52 Dose: 1 amp Cyanocobalamin (Vitamin B12 Injection -) 1,000 mcg IM DAILY [facility] Stop: 10/05/16 10:01 Last Admin: 09/30/16 09:18 Dose: 1,000 mcg Ferrous Sulfate (Feosol -) 325 mg PO BIDWM [facility] Heparin Sodium (Porcine) (Heparin -) 5,000 unit SQ BID SIMON Last Admin: 09/30/16 09:18 Dose: 5,000 unit Pantoprazole Sodium (Protonix 40mg Ivpb (Pre-Docked)) 100 mls @ 200 mls/hr IVPB DAILY [facility] Last Admin: 09/30/16 09:18 Dose: 200 mls/hr Cefoxitin Sodium 2 gm/ (Dextrose) 100 mls @ 200 mls/hr IVPB Q6H-IV SIMON Last Admin: 09/30/16 09:18 Dose: 200 mls/hr - Objective Vital Signs: Vital Signs Temperature 98.6 F 09/30/16 06:00 Pulse Rate 82 09/30/16 11:35 Respiratory Rate 20 09/30/16 06:00 Blood Pressure 109/64 09/30/16 06:00 O2 Sat by Pulse Oximetry (%) 99 09/30/16 11:35 Constitutional: Yes: No Distress Cardiovascular: Yes: Regular Rate and Rhythm, S1, S2 Respiratory: Yes: CTA Bilaterally Gastrointestinal: Yes: Normal Bowel Sounds, Soft. No: Tenderness Edema: No Labs: CBC, BMP 09/30/16 07:45 09/30/16 07:45 Assessment/Plan POD #4 appendectomy Fever- resolved WBC WNL Cultures negative May substitute Augmentin 875mg po bid x7d Outpatient surgical followup
[2016-09-30] MEDS ORDERED: FERROUS SO4 325 MG TABLET (FP) PO SCH (17:30)
[2016-09-30] MEDS ORDERED: AMOX TR/POT CLAV 875MG/125MG TABLETS (FP) PO SCH (17:30)
[2016-09-30 18:37] VITALS: BP 124/61; PULSE 84; TEMP 98.6
--- NOTE | 2016-09-30 19:21 | EKG ---
Test Reason : Blood Pressure : / mmHG Vent. Rate : 082 BPM Atrial Rate : 082 BPM P-R Int : 154 ms QRS Dur : 080 ms QT Int : 398 ms P-R-T Axes : 048 057 020 degrees QTc Int : 464 ms NORMAL SINUS RHYTHM NONSPECIFIC ST ABNORMALITY ABNORMAL ECG NO PREVIOUS ECGS AVAILABLE Confirmed by LIZZIE GIL, LISA ([id number]) on 09/30/2016 7:20:58 PM Referred By: BLANCA ODONNELL Confirmed By:LISA SAMUEL MD
--- NOTE | 2016-09-30 19:22 | EKG ---
Test Reason : Blood Pressure : / mmHG Vent. Rate : 110 BPM Atrial Rate : 110 BPM P-R Int : 180 ms QRS Dur : 080 ms QT Int : 302 ms P-R-T Axes : 039 057 -85 degrees QTc Int : 408 ms SINUS TACHYCARDIA ABNORMAL ECG NO PREVIOUS ECGS AVAILABLE Confirmed by LISA SAMUEL MD ([id number]) on 09/30/2016 7:21:45 PM Referred By: Confirmed By:LISA SAMUEL MD
== END 2016-09-30 15:31 | disposition home or self-care (01) | DRG 225 ==
LOC: JER 11:20 → JERBED 17:04 → J5S 21:27
PROVIDERS: ADMIT Surgery; ATTEND Surgery
PROC: 3E1M38Z Irrigation of Peritoneal Cavity using Irrigating Substance, Percutaneous Approach (ICD-10-PCS; 2016-09-26)
PROC: 0DTJ4ZZ Resection of Appendix, Percutaneous Endoscopic Approach (ICD-10-PCS; principal; 2016-09-26 16:50)
DX: K35.2 Acute appendicitis with generalized peritonitis (principal); A41.9 Sepsis, unspecified organism; J90 Pleural effusion, not elsewhere classified; E87.70 Fluid overload, unspecified; D50.9 Iron deficiency anemia, unspecified; J98.11 Atelectasis; E87.6 Hypokalemia
CPT/HCPCS: 36415; 36600; 71010-TC; 71275-TC; 74174-TC; 74177-TC; 80048; 80053; 81003; 81015; 82272; 82550; 82607; 82728; 82746; 82803; 83540; 83550; 83605; 83690; 83735; 83880; 84484; 84703; 85025; 85027; 86140; 87040; 87070; 87075; 87086; 87205; 87324; 87449; 88304-TC; 93005; 93010; 93306-TC; 93970-TC; 94640; 94760; 99283-25; J1644; J3490; Q9967